=== PATIENT | male | born 1985 | race Caucasian/White ===

== ENCOUNTER 2022-12-08 12:10 | Emergency (ER) | payer BC, SELFPAY ==
[2022-12-08 12:32] VITALS: BP 180/105; PULSE 102; RESP 15; TEMP 37.4; O2SAT 98; BMI 30.5
--- NOTE | 2022-12-08 12:35 | ECG_ITS ---
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 Measurements Intervals [place] Rate: 98 P: 61 RI: 160 QRS: -18 QRSD: 114 T: 51 QT: 333 QTc: 426 Interpretive Statements SINUS RHYTHM POSSIBLE LEFT ATRIAL ENLARGEMENT [-0.1mV P-WAVE IN V1/V2] INCOMPLETE RIGHT BUNDLE BRANCH BLOCK [90+ ms QRS DURATION, TERMINAL R IN V1/V2, 40+ ms S IN I/aVL/V4/V5/V6] No previous ECG available for comparison Electronically Signed On 12-08-2022 16:18:26 CDT by Vignesh Duran M.D. [id number]
--- NOTE | 2022-12-08 12:58 | XRR_ITS ---
PROCEDURE INFORMATION: Exam: XR Chest Exam date and time: 12/08/2022 1:03 PM Age: 37 years old Clinical indication: Pain; Angina pectoris; Additional info: Chest pain TECHNIQUE: Imaging protocol: Radiologic exam of the chest. Views: 1 view. COMPARISON: No relevant prior studies available. FINDINGS: Lungs: Unremarkable. No consolidation. Pleural spaces: Unremarkable. No pleural effusion. No pneumothorax. Heart/Mediastinum: Unremarkable. No cardiomegaly. Bones/joints: Unremarkable. XR/XR chest 1V portable [id number] IMPRESSION: No acute findings.
[2022-12-08 13:28] LABS: Basophils # 0.1 10^3/uL (0.0-0.1); Basophils % 0.5 %; Eosinophils # 0.1 10^3/uL (0.0-0.8); Eosinophils % 0.8 %; Hematocrit 48.7 % (42.0-52.0); Hemoglobin 16.1 g/dL (11.7-16.6); Lymphocytes # 4.8 10^3/uL (0.8-4.8); Lymphocytes % 36.7 %; Mean Corpuscular HGB Conc 33.1 g/dL (30.0-36.0); Mean Corpuscular Hemoglobin 29.7 pg (28.0-34.0); Mean Corpuscular Volume 89.7 fl (80-94); Mean Platelet Volume 8.3 fL (7.4-10.4); Monocytes # 0.8 10^3/uL (0.2-0.9); Monocytes % 6.1 %; Neutrophils # 7.21 10^3/uL (1.8-7.7); Neutrophils % 55.2 %; Nucleated Red Blood Cells % 0 %; Platelet Count 304 10^3/cmm (130-400); Red Blood Count 5.43 10^6/uL (4.1-5.3); Red Cell Distribution Width 12.2 % (12.1-15.1); White Blood Count 13.1 10^3/uL (4.0-10.0)
[2022-12-08 13:47] LABS: Alanine Aminotransferase 25 U/L (0-41); Albumin Level 4.7 g/dL (3.5-5.2); Alkaline Phosphatase 56 U/L (40-130); Aspartate Amino Transferase 14 U/L (0-40); Blood Urea Nitrogen 18 mg/dL (6-20); Calcium 9.7 mg/dL (8.5-10.5); Carbon Dioxide 23 mmol/L (22-29); Chloride 101 mmol/L (98-107); Globulin 2.2 g/dL (1.3-4.6); Glomerular Filtration Rate 83.2 mL/min (90-130); Glucose 81 mg/dL (65-115); Osmolality Calculated 285 mOsm/kg (285-295); Sodium 137 mmol/L (136-145); Total Bilirubin 0.2 mg/dL (0.15-1.2); Total Protein 6.9 g/dL (6.6-8.7)
[2022-12-08 13:50] LABS: Troponin(5th) Baseline 6 ng/L (0-15)
[2022-12-08 14:31] VITALS: BP 190/113; PULSE 93; RESP 18; O2SAT 100
--- NOTE | 2022-12-08 14:31 | W.ED.CHESTPA ---
HPI - Chest Pain General: Chief Complaint: Chest Pain Stated Complaint: chest pain/ head feels funny Time Seen by Provider: 12/08/22 14:21 Source: patient Mode of arrival: ambulatory History of Present Illness: 37-year-old male presents emergency room complaining of generally not feeling well over the left chest discomfort. This been going on most of the day today. He has a history of hypertension he is not taking any medications he said a week ago he was stung by a wasp and was put on some prednisone because he had systemic urticaria after the bite that has all resolved he has not been taking lisinopril 10 mg daily that he was previously prescribed because he was taking Benadryl and he did not want to mix the 2. He has known hypertension for some time he has no known history of heart disease or diabetes. MD complaint: chest pain Onset (ago): day(s) (1) Pain location: left chest Pain radiation: none Severity: mild Quality: sharp Relieving factors: nothing Exacerbating factors: nothing Associated symptoms: Deny abdominal pain, diaphoresis, dyspnea, fever(s), leg edema, nausea, palpitations, sense of impending doom, syncope or vomiting Treatment prior to arrival: none Review of Systems Const: Denies: fever(s), chills, fatigue, malaise or diaphoresis ENMT: Denies: throat pain, ear or mastoid pain, nasal discharge or nasal congestion Card: Reports: chest pain; Denies: palpitations, irregular heart rhythm, edema or syncope Resp: Denies: dyspnea, productive cough, non-productive cough or wheezing GI: Denies: abdominal pain, nausea or vomiting : Denies: flank pain, dysuria, urinary frequency or urinary urgency Skin/Breast: Denies: rash or pruritus [facility] ED PFSH: Medical History (Updated 12/08/22 @ 15:50 by Andrea Escobar DO) Hypertension Social History Smoking and tobacco status: current every day smoker Physical Exam Const: GENERAL APPEARANCE: cooperative and comfortable ORIENTATION/CONSCIOUSNESS: Yes awake, Yes oriented to person, Yes oriented to place and Yes oriented to time HENMT: COMMON NORMALS: normocephalic, atraumatic and hearing grossly normal bilaterally HEAD & SCALP: normocephalic and atraumatic Resp: COMMON NORMALS: normal respiratory effort, No retractions, No use of accessory muscles and clear to auscultation bilaterally AUSCULTATION: clear to auscultation bilaterally Cardio: COMMON NORMALS: regular rate, regular rhythm and No murmurs present (Cardio) RATE: regular rate RHYTHM: regular rhythm GI: COMMON NORMALS: Soft to palpation and No hepatosplenomegaly present AUSCULTATION: Yes normoactive bowel sounds PALPATION: Yes Soft to palpation, No Tenderness to palpation present (GI), No Guarding due to palpation present (GI) and Yes No hepatosplenomegaly present Extremity: COMMON NORMALS: normal to inspection, capillary refill normal, no clubbing, cyanosis or edema, no calf tenderness and no pedal edema Neuro: SENSORIUM/ORIENTATION: Yes oriented to person, Yes oriented to place and Yes oriented to time OTHER: Cranial nerves II to XII grossly intact no focal neurologic deficits are noted Skin: COMMON NORMALS: no rashes or lesions noted GENERAL SKIN EXAM: no rashes or lesions noted Course Vital Signs: Vital signs: Vital Signs Temperature 99.3 F 12/08/22 12:32 Pulse Rate 79 12/08/22 15:56 Respiratory Rate 18 12/08/22 14:31 Blood Pressure 134/92 12/08/22 15:56 Pulse Oximetry 98 12/08/22 15:11 Oxygen Delivery Me thod Room Air 12/08/22 15:11 MDM - Chest Pain Medical Decision Making Cardiac enzymes and EKG unremarkable no sign of acute coronary syndrome blood pressure improved with medications given. We will increase his lisinopril to 20 mg daily add Toprol-XL 25 p.o. daily discussed in the importance of blood pressure control long-term. Case management will help him set up with a primary care physician. Medical Records I reviewed the patient's medical records. Lab Data I reviewed the patient's lab results. 12/08/22 13:17 12/08/22 13:17 Radiology Impressions Chest X-Ray 12/08/22 12:58 IMPRESSION: No acute findings. Laboratory Results WBC 13.1 10^3/uL (4.0-10.0) H 12/08/22 13:17 RBC 5.43 10^6/uL (4.1-5.3) H 12/08/22 13:17 Hgb 16.1 g/dL (11.7-16.6) 12/08/22 13:17 Hct 48.7 % (42.0-52.0) 12/08/22 13:17 MCV 89.7 fl (80-94) 12/08/22 13:17 MCH 29.7 pg (28.0-34.0) 12/08/22 13:17 MCHC 33.1 g/dL (30.0-36.0) 12/08/22 13:17 RDW 12.2 % (12.1-15.1) 12/08/22 13:17 Plt Count 304 10^3/cmm (130-400) 12/08/22 13:17 MPV 8.3 fL (7.4-10.4) 12/08/22 13:17 Neut % (Auto) 55.2 % 12/08/22 13:17 Lymph % (Auto) 36.7 % 12/08/22 13:17 [place] % (Auto) 6.1 % 12/08/22 13:17 Eos % (Auto) 0.8 % 12/08/22 13:17 Baso % (Auto) 0.5 % 12/08/22 13:17 Neut # (Auto) 7.21 10^3/uL (1.8-7.7) 12/08/22 13:17 Lymph # (Auto) 4.8 10^3/uL (0.8-4.8) 12/08/22 13:17 [place] # (Auto) 0.8 10^3/uL (0.2-0.9) 12/08/22 13:17 Eos # (Auto) 0.1 10^3/uL (0.0-0.8) 12/08/22 13:17 Baso # (Auto) 0.1 10^3/uL (0.0-0.1) 12/08/22 13:17 Nucleated RBC % (auto) 0 % 12/08/22 13:17 Nucleated RBCs # 0.0 /100WBC 12/08/22 13:17 Sodium 137 mmol/L (136-145) 12/08/22 13:17 Potassium 4.0 mmol/L (3.5-5.1) 12/08/22 13:17 Chloride 101 mmol/L (98-107) 12/08/22 13:17 Carbon Dioxide 23 mmol/L (22-29) 12/08/22 13:17 Anion Gap 17.0 (5-19) 12/08/22 13:17 BUN 18 mg/dL (6-20) 12/08/22 13:17 Creatinine 1.0 mg/dL (0.7-1.2) 12/08/22 13:17 GFR Calculation 83.2 mL/min (90-130) L 12/08/22 13:17 Glucose 81 mg/dL (65-115) 12/08/22 13:17 Calculated Osmolality 285 mOsm/kg (285-295) 12/08/22 13:17 Calcium 9.7 mg/dL (8.5-10.5) 12/08/22 13:17 Total Bilirubin 0.2 mg/dL (0.15-1.2) 12/08/22 13:17 AST 14 U/L (0-40) 12/08/22 13:17 ALT 25 U/L (0-41) 12/08/22 13:17 Alkaline Phosphatase 56 U/L (40-130) 12/08/22 13:17 Troponin T Baseline 6 ng/L (0-15) 12/08/22 13:17 Troponin T 120 Minute 6.00 ng/L (0-15) 12/08/22 14:55 Delta Troponin T 0 ABS# (0-10) 12/08/22 14:55 Total Protein 6.9 g/dL (6.6-8.7) 12/08/22 13:17 Albumin 4.7 g/dL (3.5-5.2) 12/08/22 13:17 Globulin 2.2 g/dL (1.3-4.6) 12/08/22 13:17 Discharge Plan Discharge Patient Disposition: Home Clinical Impression: Hypertension, Atypical chest pain Condition: Stable Prescriptions: New Toprol XL 25 mg tablet extended release 24 hr 25 mg PO DAILY Qty: 30 0RF lisinopril 20 mg tablet 20 mg PO DAILY Qty: 30 0RF Discontinued lisinopril 10 mg tablet 10 mg PO DAILY No Action prednisone 20 mg tablet 20 mg PO DAILY Rx Instructions: taper dose as directed Discharge Orders: Discharge ED (Routine); Ordered 12/08/22 Ordered By: Andrea Escobar Discharge Diet: Usual diet Discharge Activity: Increase activity as tolerated Patient Instructions: Chronic Hypertension (ED), Opioid Safety, Pain Management Activity Restrictions/Additional Instructions: Increase her lisinopril to 20 mg daily and add metoprolol XL 25 mg daily. Follow-up with your primary care doctor within the next week to reevaluate your blood pressure. Coding Level of Care Code ED De Icer Finisher for Simin Bangura
[2022-12-08] MEDS: enalaprilat 1.25 mg/mL Inj IVP (14:42)
[2022-12-08] MEDS: metoprolol succinate ER (24 HR) 25 mg Tablet PO (14:43)
[2022-12-08] MEDS: labetalol 5 mg/mL SDV 20mL 10 MG IVP (14:44)
[2022-12-08 14:47] VITALS: BP 190/113
--- NOTE | 2022-12-08 14:58 | ECG_ITS ---
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 Measurements Intervals [place] Rate: 82 P: 54 PA: 168 QRS: -7 QRSD: 116 T: 31 QT: 351 QTc: 412 Interpretive Statements SINUS RHYTHM POSSIBLE LEFT ATRIAL ENLARGEMENT [-0.1mV P-WAVE IN V1/V2] INCOMPLETE RIGHT BUNDLE BRANCH BLOCK [90+ ms QRS DURATION, TERMINAL R IN V1/V2, 40+ ms S IN I/aVL/V4/V5/V6] Compared to ECG 12/08/2022 12:40:29 No significant changes Electronically Signed On 12-08-2022 16:19:27 CDT by Vignesh Duran M.D. [id number]
[2022-12-08 15:11] VITALS: BP 154/100; O2SAT 98
[2022-12-08 15:44] VITALS: BP 134/92
[2022-12-08 15:53] LABS: Troponin 5 2HR Delta 0 ABS# (0-10)
[2022-12-08 15:56] VITALS: BP 134/92; PULSE 79
--- NOTE | 2022-12-09 09:38 | DCPLANNER ---
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 Patient stated that he would like to get established with a provider. postal service sectional center manager called [facility], gave clinic patients information. A follow up appointment was scheduled for Monday, January 02, 2023 at 9:[address] Rico. Patient is aware of appointment.
== END 2022-12-08 15:57 | disposition home or self-care (01) ==
PROVIDERS: Physician Assistant; Emergency Provider Family Medicine
DX: R07.89 Other chest pain (principal); I10 Essential (primary) hypertension; F17.200 Nicotine dependence, unspecified, uncomplicated
CPT/HCPCS: 36415; 71045; 80053; 84484; 85025; 93005; 96374; 96375; 99285; J3490

== ENCOUNTER 2022-12-27 14:29 | Inpatient (IN) | payer BC, SELFPAY ==
[2022-12-27] VITALS (13 sets, daily range): BP systolic 110–174; BP diastolic 64–105; PULSE 52–104; RESP 12–22; TEMP 36.6–36.8; O2SAT 93–100; BMI 29.0
--- NOTE | 2022-12-27 14:37 | ED_ITS ---
HPI - Chest Pain General: Chief Complaint: Chest Pain Stated Complaint: chest pain Time Seen by Provider: 12/27/22 14:30 Source: patient Mode of arrival: EMS History of Present Illness: 37-year-old male presents emergency room planing of chest pain that began about half hour after he taken some oral antibiotics. It is worse when he takes a deep breath describes as a burning sensation substernally radiating from the epigastric area up to the base of his neck. He has not had any nausea vomiting or diarrhea he does have some discomfort into his back states he has had some upper chest pain last night as well is not affected by deep inspiration. He does state it radiates on his right arm he was seen earlier this month for chest pain his cardiac rule out was negative. He was seen in this morning at a walk- in clinic and discharged with oral antibiotics. MD complaint: chest pain Onset (ago): hour(s) Timing of current episode: episodic Prior episodes: Yes Onset: other (Worse after taking oral antibiotic) Pain location: substernal Pain radiation: right arm Severity: mild Quality: burning Relieving factors: nothing Exacerbating factors: nothing Associated symptoms: Deny abdominal pain, dyspnea, fever(s), nausea, palpitations or vomiting Review of Systems Const: Denies: fever(s), chills, body aches, change in appetite, fatigue or malaise ENMT: Denies: throat pain, ear or mastoid pain, nasal discharge or nasal congestion Card: Reports: chest pain; Denies: palpitations, irregular heart rhythm, edema, dyspnea on exertion or orthopnea Resp: Denies: dyspnea, productive cough or non-productive cough GI: Denies: abdominal pain, nausea, vomiting, hematemesis, coffee ground emesis, diarrhea, constipation, bloating, hematochezia or melena : Denies: flank pain, dysuria, urinary frequency or urinary urgency Skin/Breast: Denies: rash or pruritus PFSH ED PFSH: Medical History Hypertension Social History Smoking and tobacco status: current every day smoker Physical Exam Const: GENERAL APPEARANCE: cooperative and comfortable ORIENTATION/CONSCIOUSNESS: Yes awake, Yes oriented to person, Yes oriented to place and Yes oriented to time HENMT: COMMON NORMALS: normocephalic, atraumatic and hearing grossly normal bilaterally HEAD & SCALP: normocephalic and atraumatic Resp: COMMON NORMALS: normal respiratory effort, No retractions, No use of accessory muscles and clear to auscultation bilaterally AUSCULTATION: clear to auscultation bilaterally Cardio: COMMON NORMALS: regular rate, regular rhythm and No murmurs present (Cardio) RATE: regular rate RHYTHM: regular rhythm GI: COMMON NORMALS: Soft to palpation and No hepatosplenomegaly present AUSCULTATION: Yes normoactive bowel sounds PALPATION: Yes Soft to palpation, No Tenderness to palpation present (GI), No Guarding due to palpation present (GI) and Yes No hepatosplenomegaly present Extremity: COMMON NORMALS: normal to inspection, capillary refill normal, no clubbing, cyanosis or edema, no calf tenderness and no pedal edema Neuro: SENSORIUM/ORIENTATION: Yes oriented to person, Yes oriented to place and Yes oriented to time Skin: COMMON NORMALS: no rashes or lesions noted GENERAL SKIN EXAM: no rashes or lesions noted Course Vital Signs: Vital signs: Vital Signs Temperature 98.3 F 12/27/22 15:10 Pulse Rate 76 12/27/22 15:58 Respiratory Rate 20 H 12/27/22 15:58 Blood Pressure 152/105 12/27/22 15:58 Pulse Oximetry 98 12/27/22 15:58 MDM - Chest Pain Medical Decision Making Initial EKG showed vague abnormality nonspecific in 2 and aVF repeated was res olved and appeared similar to the December 08 EKG does not meet STEMI criteria reviewed with Dr. Orellana he concurs. His second troponin however was a positive delta of 81. Patient is still having some mild chest discomfort although it is improved. Started on heparin drip as well as nitro we will admit with Dr. Wu consult for Dr. Orellana. Dr. Orellana is planning to come see the patient in the emergency room he has been given aspirin loaded with Plavix as well as a nitro and heparin. Medical Records I reviewed the patient's medical records. Lab Data I reviewed the patient's lab results. 12/27/22 14:48 12/27/22 14:48 Radiology Impressions Chest X-Ray 12/27/22 14:37 IMPRESSION: No acute findings. Laboratory Results WBC 8.7 10^3/uL (4.0-10.0) 12/27/22 14:48 RBC 4.82 10^6/uL (4.1-5.3) 12/27/22 14:48 Hgb 14.9 g/dL (11.7-16.6) 12/27/22 14:48 Hct 42.1 % (42.0-52.0) 12/27/22 14:48 MCV 87.3 fl (80-94) 12/27/22 14:48 MCH 30.9 pg (28.0-34.0) 12/27/22 14:48 MCHC 35.4 g/dL (30.0-36.0) 12/27/22 14:48 RDW 11.9 % (12.1-15.1) L 12/27/22 14:48 Plt Count 253 10^3/cmm (130-400) 12/27/22 14:48 MPV 8.3 fL (7.4-10.4) 12/27/22 14:48 Neut % (Auto) 61.6 % 12/27/22 14:48 Lymph % (Auto) 30.4 % 12/27/22 14:48 [place] % (Auto) 5.2 % 12/27/22 14:48 Eos % (Auto) 1.8 % 12/27/22 14:48 Baso % (Auto) 0.5 % 12/27/22 14:48 Neut # (Auto) 5.35 10^3/uL (1.8-7.7) 12/27/22 14:48 Lymph # (Auto) 2.6 10^3/uL (0.8-4.8) 12/27/22 14:48 [place] # (Auto) 0.5 10^3/uL (0.2-0.9) 12/27/22 14:48 Eos # (Auto) 0.2 10^3/uL (0.0-0.8) 12/27/22 14:48 Baso # (Auto) 0.0 10^3/uL (0.0-0.1) 12/27/22 14:48 Nucleated RBC % (auto) 0 % 12/27/22 14:48 Nucleated RBCs # 0.0 /100WBC 12/27/22 14:48 Sodium 136 mmol/L (136-145) 12/27/22 14:48 Potassium 3.7 mmol/L (3.5-5.1) 12/27/22 14:48 Chloride 103 mmol/L (98-107) 12/27/22 14:48 Carbon Dioxide 21 mmol/L (22-29) L 12/27/22 14:48 Anion Gap 15.7 (5-19) 12/27/22 14:48 BUN 12 mg/dL (6-20) 12/27/22 14:48 Creatinine 0.9 mg/dL (0.7-1.2) 12/27/22 14:48 GFR Calculation 93.9 mL/min (90-130) 12/27/22 14:48 Glucose 133 mg/dL (65-115) H 12/27/22 14:48 Calculated Osmolality 284 mOsm/kg (285-295) L 12/27/22 14:48 Calcium 9.5 mg/dL (8.5-10.5) 12/27/22 14:48 Total Bilirubin 0.2 mg/dL (0.15-1.2) 12/27/22 14:48 AST 14 U/L (0-40) 12/27/22 14:48 ALT 20 U/L (0-41) 12/27/22 14:48 Alkaline Phosphatase 52 U/L (40-130) 12/27/22 14:48 Troponin T Baseline 10 ng/L (0-15) 12/27/22 14:48 Troponin T 120 Minute 90.83 ng/L (0-15) H 12/27/22 16:32 Delta Troponin T 80.83 ABS# (0-10) H* 12/27/22 16:32 Total Protein 6.3 g/dL (6.6-8.7) L 12/27/22 14:48 Albumin 4.4 g/dL (3.5-5.2) 12/27/22 14:48 Globulin 1.9 g/dL (1.3-4.6) 12/27/22 14:48 Discharge Plan Discharge Patient Disposition: Admitted As Inpatient Clinical Impression: Acute non-ST elevation myocardial infarction (NSTEMI), Hypertension Condition: Stable Coding Level of Care Code ED Family Preservation Caseworker for Simin Bangura
--- NOTE | 2022-12-27 14:37 | XRR_ITS ---
PROCEDURE INFORMATION: Exam: XR Chest Exam date and time: 12/27/2022 2:46 PM Age: 37 years old Clinical indication: Cough and dyspnea; Additional info: Dyspnea/cough TECHNIQUE: Imaging protocol: Radiologic exam of the chest. Views: 1 view. COMPARISON: CR XR chest 1V portable [id number] 12/08/2022 1:03 PM FINDINGS: Lungs: Unremarkable. No consolidation. Pleural spaces: Unremarkable. No pleural effusion. No pneumothorax. Heart/Mediastinum: Unremarkable. No cardiomegaly. Bones/joints: Unremarkable. XR/XR chest 1V portable [id number] IMPRESSION: No acute findings.
--- NOTE | 2022-12-27 14:37 | ECG_ITS ---
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 Measurements Intervals [place] Rate: 62 P: 15 CT: 168 QRS: 62 QRSD: 105 T: 49 QT: 384 QTc: 391 Interpretive Statements SINUS RHYTHM POSSIBLE INFERIOR MYOCARDIAL INFARCTION , PROBABLY OLD [30 ms Q WAVE IN II/aVF] Compared to ECG 12/27/2022 14:41:21 Myocardial infarct finding now present Incomplete right bundle-branch block no longer present ST (T wave) deviation no longer present Electronically Signed On 12-29-2022 8:33:49 CDT by Conrado Riley M.D. [id number]
--- NOTE | 2022-12-27 14:41 | ECG_ITS ---
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 Measurements Intervals [place] Rate: 63 P: 42 ID: [id number] QRS: -4 QRSD: 107 T: -4 QT: 384 QTc: 394 Interpretive Statements SINUS RHYTHM INCOMPLETE RIGHT BUNDLE BRANCH BLOCK [90+ ms QRS DURATION, TERMINAL R IN V1/V2, 40+ ms S IN I/aVL/V4/V5/V6] MINIMAL VOLTAGE CRITERIA FOR LVH, CONSIDER NORMAL VARIANT [MEETS CRITERIA IN ONE OF: R(aVL), S(V1), R(V5), R(V5/V6)+S(V1)] MODERATE ST DEPRESSION [0.05+ mV ST DEPRESSION] Compared to ECG 12/08/2022 14:42:36 ST (T wave) deviation now present Electronically Signed On 12-29-2022 8:37:53 CDT by Conrado Riley M.D. [email or web address]/[id number]
[2022-12-27 15:01] LABS: Basophils % 0.5 %; Eosinophils # 0.2 10^3/uL (0.0-0.8); Eosinophils % 1.8 %; Hematocrit 42.1 % (42.0-52.0); Hemoglobin 14.9 g/dL (11.7-16.6); Lymphocytes # 2.6 10^3/uL (0.8-4.8); Lymphocytes % 30.4 %; Mean Corpuscular HGB Conc 35.4 g/dL (30.0-36.0); Mean Corpuscular Hemoglobin 30.9 pg (28.0-34.0); Mean Corpuscular Volume 87.3 fl (80-94); Mean Platelet Volume 8.3 fL (7.4-10.4); Monocytes # 0.5 10^3/uL (0.2-0.9); Monocytes % 5.2 %; Neutrophils # 5.35 10^3/uL (1.8-7.7); Neutrophils % 61.6 %; Nucleated Red Blood Cells % 0 %; Platelet Count 253 10^3/cmm (130-400); Red Blood Count 4.82 10^6/uL (4.1-5.3); Red Cell Distribution Width 11.9 % (12.1-15.1); White Blood Count 8.7 10^3/uL (4.0-10.0)
[2022-12-27 15:21] LABS: Alanine Aminotransferase 20 U/L (0-41); Albumin Level 4.4 g/dL (3.5-5.2); Alkaline Phosphatase 52 U/L (40-130); Anion Gap 15.7 (5-19); Aspartate Amino Transferase 14 U/L (0-40); Blood Urea Nitrogen 12 mg/dL (6-20); Calcium 9.5 mg/dL (8.5-10.5); Carbon Dioxide 21 mmol/L (22-29); Chloride 103 mmol/L (98-107); Globulin 1.9 g/dL (1.3-4.6); Glomerular Filtration Rate 93.9 mL/min (90-130); Glucose 133 mg/dL (65-115); Osmolality Calculated 284 mOsm/kg (285-295); Potassium 3.7 mmol/L (3.5-5.1); Sodium 136 mmol/L (136-145); Total Bilirubin 0.2 mg/dL (0.15-1.2); Total Protein 6.3 g/dL (6.6-8.7)
[2022-12-27 15:22] LABS: Troponin(5th) Baseline 10 ng/L (0-15)
[2022-12-27] MEDS: aluminum-mag hydrox-simethicon 30 ML, sucralfate oral liq 1 GM PO (15:57)
[2022-12-27 17:20] LABS: Troponin 5 2HR 90.83 ng/L (0-15)
[2022-12-27 17:27] LABS: Troponin 5 2HR Delta 80.83 ABS# (0-10)
[2022-12-27] MEDS: heparin drip 25,000 UNIT/500 ML PREMIX 24.26 UNIT IV (17:52)
[2022-12-27] MEDS: heparin 5,000 unit/mL INJ 1 mL IV (17:53)
[2022-12-27] MEDS: aspirin 81 mg Chew Tablet 324 MG PO (17:55)
[2022-12-27] MEDS: nitroglycerin drip 50 MG/250 ML PREMIX IV (17:57)
[2022-12-27] MEDS: clopidogrel 300 mg Tablet 600 MG PO (17:59)
--- NOTE | 2022-12-27 18:31 | P.HP_ITS ---
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, he tells me that since he has been diagnosed with hypertension, he has been cutting down on caffeine, he used to be a smoker, he is cutting down, he tells me that this morning at 2 AM he woke up with anterior chest discomfort and was like a burning sensation with pain with taking a deep breath in, pain in the back of his throat, feeling a lump in back, he thought he had upper respiratory tract infection and got some antibiotics and steroids, but in the afternoon he had another episode of severe chest discomfort like something burning in his chest and his throat, feeling as if there is a lump in the back of his throat, so he came to the ER for evaluation, does have a family history of CAD in both sides Review of Systems Const: Denies: fever(s) or chills Eyes: Denies: change in vision ENMT: Denies: throat pain Card: Reports: chest pain Resp: Denies: dyspnea or non-productive cough GI: Denies: abdominal pain or nausea : Denies: flank pain or difficulty urinating Musc: Reports: back pain; Denies: neck pain Skin/Breast: Denies: rash Neuro: Denies: headache(s) Psych: Denies: anxiety Endo: Denies: polyuria Medications/Allergies Home Medications Medication Instructions Recorded Confirmed Last Taken Type lisinopril 20 mg tablet 20 mg PO DAILY #30 tabs 12/08/22 12/27/22 12/27/22 Rx metoprolol succinate 25 mg 25 mg PO DAILY #30 tabs 12/08/22 12/27/22 12/27/22 Rx tablet,extended release 24 hr (Toprol XL) Allergies Allergy/AdvReac Type Severity Reaction Status Date / Time No Known Allergies Allergy Verified 12/27/22 10:49 PFSH Acute PFSH: Medical History (Updated 12/27/22 @ 18:36 by Jose Wu MD) Hypertension Surgical History (Updated 12/27/22 @ 18:34 by Jose Wu MD) No pertinent past surgical history Family History (Updated 12/27/22 @ 18:35 by Jose Wu MD) Father CAD (coronary artery disease) Mother CAD (coronary artery disease) Grandmother CAD (coronary artery disease) Social History (Updated 12/27/22 @ 18:35 by Jose Wu MD) Smoking and tobacco status: current every day smoker Alcohol intake: never Substance/Drug Use: never Vitals/I&O/Wt Last Vital Signs Temp 98.3 F 12/27/22 15:10 Pulse 76 12/27/22 15:58 Resp 20 H 12/27/22 15:58 BP 152/105 12/27/22 15:58 Pulse Ox 98 12/27/22 15:58 Weight last 48 hrs Weight 86.636 kg Physical Exam Const: COMMON NORMALS: no acute distress and patient oriented x3 HENMT: COMMON NORMALS: normocephalic HEAD & SCALP: normocephalic Eye: COMMON NORMALS: Equal, round and reactive pupils present and EOMs intact bilaterally Neck/C-Spine: COMMON NORMALS: no JVD Lymph: LYMPHATIC: no lymphadenopathy noted Chest: COMMONS NORMALS: normal inspection of the chest Resp: COMMON NORMALS: normal respiratory effort, No retractions, No use of accessory muscles and clear to auscultation bilaterally AUSCULTATION: clear to auscultation bilaterally Cardio: COMMON NORMALS: no JVD, regular rate, regular rhythm, S1 normal heart sound present and S2 normal heart sound present RATE: regular rate RHYTHM: regular rhythm HEART SOUNDS: S1 normal heart sound present and S2 normal heart sound present GI: COMMON NORMALS: Normal to inspection, nondistended, normoactive bowel sounds present, Soft to palpation, non-tender, no masses and no bruits PALPATION: Yes Soft to palpation : COMMON NORMALS: Yes no CVA tenderness Extremity: COMMON NORMALS: no clubbing, cyanosis or edema, no calf tenderness and no pedal edema Neuro: COMMON NORMALS: patient oriented x3, CN's II-XII intact bilaterally, moves all extremities, no focal motor deficits and no sensory deficits noted Psych: COMMON NORMALS: mental status grossly normal Data 12/27/22 14:48 12/27/22 14:48 A&P Assessment and plan (1) Acute non-ST elevation myocardial infarction (NSTEMI): (2) Chest pain: (3) Hypertension: Plan Chest pain and NSTEMI Plan -Admit to CSU -Currently on heparin drip -Currently on nitroglycerin drip -Serial EKGs, serial troponins, telemetry monitoring -Loaded with Plavix and aspirin -Aspirin, statin, beta-maria eugenia -morphine for pain as needed -Cardiac echo -TSH, A1c, lipid panel, ESR -Cardiology consulted, npo -Full code -Heparin for DVT prophylaxis Attestations Medical Necessity Statement*: Patient requires hospitalization, inpatient, greater than 2 midnights, for chest pain and NSTEMI Diagnoses Acute non-ST elevation myocardial infarction (NSTEMI) I21.4 Chest pain R07.9 Hypertension I10
--- NOTE | 2022-12-27 19:01 | XACV_ITS ---
Exam Room: [facility] Ht: 173 cm Wt: 87 kg BSA: 2.06 m2 Gender: Male : 1985 Exam Priority: Routine Procedure(s): Procedure Description: Diagnostic procedure Procedure Description: Left Heart Catheterization Procedure Description: Left ventriculography Procedure Description: Miscellaneous Procedure Description: ACT Procedure Description: Coronary Angiography Darrick JOHNSON; Diagnostic Cath Status: Emergency PCI Status: Emergency Conclusions 1. #1 Left main distal 80% stenosed #2 LAD is moderate-sized with luminal irregularities, diagonal 1 is a moderate-sized in caliber vessel with luminal irregularity #3 Left circumflex is a moderate-sized in caliber nondominant vessel with luminal irregularity #4 Ramus intermedius has proximal 90% stenosis it is small to moderate-sized caliber vessel #5 RCA is dominant moderate-sized in caliber vessel with proximal and mid 80% stenosis. Left ventricular ejection fraction appeared to be moderately reduced at 40% with anterior apical and inferoapical hypokinesis Left ventricular end-diastolic pressure normal 8 mmHg. Recommendations * Usual post cath care. * Refer for CABG. Diagnostic RX Recommendation: CABG LV EDP: 8 mmHg Ventriculography Ejection Fraction: 40.0 % Left Ventriculography Findings: * Moderately depressed LVEF 40%. Pressures Phase:Rest AO : 98 / 76 ( 88 ) @ 3:08:56 PM 89 / 67 ( 79 ) @ 3:08:56 PM 98 / 66 ( 83 ) @ 3:08:56 PM 98 / 56 ( 75 ) @ 3:08:56 PM 95 / 52 ( 71 ) @ 3:08:56 PM 104 / 56 ( 77 ) @ 3:08:56 PM LV : 118 / -17 / 5 @ 3:08:56 PM 114 / -11 / 5 @ 3:08:56 PM 119 / -13 / 8 @ 3:08:56 PM Valves Phase:DefaultPhase AV : 14.0 @ 8:08:56 PM 14.0 @ 8:08:56 PM AV Mean Gradient: 11.0 @ 8:08:56 PM 11.0 @ 8:08:56 PM Clinical Evaluation EBL: 5mL-10mL Procedural Details Admit Source: Emergency department. Pre-Procedure Time Out. Identified patient by full name and date of as verbalized by the patient/guarantor. Does the consent match the physician's order: N/A Emergent. Accurate & Complete Informed Consent: N/A Emergent. Inpatient/Outpatient History & Physical on Chart: N/A Emergent. If H&P is completed, is and addenduem needed: N/A Emergent; If yes, is the addendum complete: N/A Emergent. Visualize and Verify Site with Patient/Guarantor: N/A. Relevant Radiology Images available: N/A Emergent. Pre-op teaching completed and patient verbalized understanding. The risks, benefits, and alternatives of sedation and/or procedure were discussed by physician. The patient agrees to continue. Procedure started. 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 Chest Pain Symptom Assessment: Typical Angina Symptoms. Correct patient, site and procedure confirmed by cath team. Current diagnosis: NSTEMI. PERRLA. Strong, equal hand sound system installer bilaterally. Lungs clear x 5 lobes. IV Site on Arrival: 20 gauge in the right anticubital. IV Site on Arrival: 20 gauge in the left anticubital. IV Fluids: 0.9% NaCl at KVO. 0 mL infused prior to earth science laboratory technician. Pre Procedural Pulses: bilateral dorsalis pedis was 1+. Pre Procedural Pulses: bilateral posterior tibial was 1+. Pre Procedural Pulses: bilateral radial was 3+. Oxygen started at 2liters/min via nasal canula. right groin was prepped with chloroprep then draped in the usual sterile fashion. right radial was prepped with chloroprep then draped in the usual sterile fashion. Physician notified. Baseline sample Acquired. HR: 80 BPM. Physician arrived. Physician scrubbed in. Immediate Pre-Procedure Time Out. Correct Patient: Yes; Correct Procedure: Yes; Correct Site: Yes; Correct Patient Position: Yes; Correct Supplies: Yes; Dried Flammable Prep: Yes; Blood Products Available: N/A;. Lidocaine 1% infiltrated to the right radial. Arterial access obtained. A 5 polish TIG catheter in over wire. ACT drawn. Results 174 seconds. Therapeutic limits - pre-heparin administration 90-150 seconds and monitoring heparin during a vascular procedure >250 seconds. Multiple views taken of right coronary artery. Catheter redirected to the LCA. Catheter out. A 5 polish Tip catheter in over wire. Catheter out. A 5 polish JL4 catheter in over wire. Catheter out. 6 polish CLS 3 guide catheter was inserted over the wire. Multiple views taken of left coronary artery. Catheter out. A 5 polish Angled Pig catheter in over wire. EDP Sample taken: LV 118/-18,5; HR: 74 BPM; SpO2: 100%. LV gram performed in [place] @ 10 mL/second for a total of 30 mL. EDP Sample taken: LV 114/-12,5; HR: 73 BPM; SpO2: 100%. Pullback taken: LV 119/-14,8; AO 104/56(77); Mean: 11mmHg, Peak to Peak: 14mmHg, SEP: 20sec/min; HR: 69 BPM; SpO2: 100%. Catheter out. Wire out. Post Procedure: Pulses reassessed and unchanged. PERRLA. Strong, equal hand sound system installer bilaterally. No VTE prophylaxis required. Medication's Wasted: Nitro = 49.8 mg. Medication's Wasted: Heparin = 1000 units. Total IV fluids: 35 mL. A TR Band was successful obtaining hemostatsis at the Right Radial artery insertion site. Post-op diagnosis: mulit vessel cad including Left Main, needing bypas surgery. Complications: none. Estimated blood loss: 5mL-10mL. Responsiveness - Normal response to verbal stimuli; alert and oriented, PERRLA. Airway - Unaffected, no intervention required; spontaneous ventilation. Circulation: W/N/L, pulses unchanged. Nausea/Vomiting: No. Procedure completed. Patient transferred by wheelchair to 1st floor. Vital chart was stopped. Access Site Site: Right Radial artery Sheath Size: 6 Fr Hemostasis Method: TR Band Hemostasis Success: Successful Complication Findings: none. Procedure Medications Start: 7:30 PM Stop: 7:30 PM Medication: Versed Amount: 1 mg Route: I.V. Start: 7:30 PM Stop: 7:30 PM Medication: Fentanyl Amount: 50 mcg Route: I.V. Start: 7:30 PM Stop: 7:30 PM Medication: Versed Amount: 1 mg Route: I.V. Start: 7:32 PM Stop: 7:32 PM Medication: Versed Amount: 1 mg Route: I.V. Start: 7:32 PM Stop: 7:32 PM Medication: Nitrogylcerin Amount: 200 mcg Route: I.A. Start: 7:32 PM Stop: 7:32 PM Medication: Fentanyl Amount: 25 mcg Route: I.V. Start: 7:35 PM Stop: 7:35 PM Medication: Versed Amount: 1 mg Route: I.V. Start: 7:40 PM Stop: 7:40 PM Medication: Heparin Amount: 5000 units Route: I.V. Start: 7:40 PM Stop: 7:40 PM Medication: Fentanyl Amount: 25 mcg Route: I.V. Start: 7:43 PM Stop: 7:43 PM Medication: Versed Amount: 1 mg Route: I.V. Start: 7:51 PM Stop: 7:51 PM Medication: Versed Amount: 1 mg Route: I.V. I, the attending physician, have reviewed and verified all procedure medications. Yes, all medications given per verbal order History/Risk Factors Hypertension: No Dyslipidemia: No Peripheral Arterial Disease (PAD): No Myocardial Infarction (SD): No Obesity: No Tobacco Use: Current/Recent(w/in 1 year) Prior Interventions Valve Surgery: No Report Signatures Amended by Vincenzo Hollingsworth MD on 12/27/2022 08:54 PM Finalized by Vincenzo Hollingsworth MD on 12/27/2022 08:40 PM
--- NOTE | 2022-12-27 19:13 | W.PM.OPSFHP ---
Same Day Surgery H&P Indication for Procedure/HPI DATE OF PROCEDURE: December 27, 2022 CHIEF COMPLAINT/INDICATIONFOR SURGICAL PROCEDURE: Chest pain/non-ST elevation MT PREOP DIAGNOSIS: Non-ST relation normal PLANNED PROCEDURE: Left heart cath/PCI if indicated 37-year-old male with past medical history significant for continuous tobacco abuse hypertension presented with off-and-on chest pain going on for the last few days last night chest pain woke him up from the sleep this morning he has epigastric fullness and pain therefore decided to come to ER thinking it is GI. First EKG performed around [address] elevation in the inferior leads with septal leads mild depression. He was ruled in with second delta troponin of 90 with normalization of second EKG. I was informed at 5:17 PM. I came to the ER and saw the patient. It appears to me that patient has acute coronary syndrome with dynamic EKG changes and recurrent chest pain I will proceed with left heart cath/PCI if indicated for ROS Chest pain shortness of breath upon exertion Medications/Allergies* No known medicine and Allergies/Adverse Reactions Allergy/AdvReac Type Severity Reaction Status Date / Time No Known Allergies Allergy Verified 12/27/22 10:49 Additional Home Medication Information: Metoprolol Lisinopril Current Medications: Generic Name Dose Route Start Last Admin Trade Name Freq PRN Reason Stop Dose Admin Heparin Sodium (Porcine) 0 unit 12/27/22 17:30 12/27/22 17:53 Heparin 5,000 Unit/Ml Inj 1 Ml IV 4,300 unit PRN PRN Administration Heparin weight-base protocol Protocol Heparin Sodium/Sodium Chloride 25,000 unit in 500 mls @ 0 mls/hr 12/27/22 17:30 12/27/22 17:52 Heparin Drip IV 14 unit/kg/hr .Q0M BELLA 24.26 mls/hr Administration Protocol Per Protocol Nitroglycerin/Dextrose 50 mg in 250 mls @ 0 mls/hr 12/27/22 17:45 12/27/22 17:57 Nitroglycerin Drip IV 5 mcg/min .Q0M BELLA 1.5 mls/hr Administration Protocol Per Protocol Pertinent History/Comorbid Conditions* Medical History (Updated 12/27/22 @ 18:36 by Jose Wu MD) Hypertension Surgical History (Updated 12/27/22 @ 18:34 by Jose Wu MD) No pertinent past surgical history Family History (Updated 12/27/22 @ 18:35 by Jose Wu MD) CAD (coronary artery disease) Father Mother Grandmother Social History Smoking and tobacco status: current every day smoker Alcohol intake: never Substance/Drug Use: never Pertinent Exam Findings alert, oriented x 3, clear to auscultation bilaterally, regular rate & rhythm, operative site marked and procedure specific exam findings ASA of 2 Mallampati 2 Recommendations Surgery/Procedure today (Left heart cath/PCI) Coding Level of Care Code Acute Code for Chg Fwd Diagnoses
[2022-12-27 19:33] LABS: NT Pro B Type Natriuretic Pept 72 pg/mL (0-125)
[2022-12-27 20:27] LABS: Erythrocyte Sedimentation Rate 9 mm/hr (0-10)
[2022-12-27 20:37] LABS: Triglycerides 252 mg/dL (0-150)
--- NOTE | 2022-12-27 20:37 | ECG_ITS ---
[facility] Test Date: 2022-12-27 Pat Name: Gerardo Hunter Department: Room: Gender: Male It Operations Specialist: : 1985 Requested By: Andrea Pepe Order Number: [id number] Jamar MD: Conrado Riley M.D. Measurements Intervals [place] Rate: 61 P: 53 IN: 180 QRS: -4 QRSD: 103 T: 79 QT: 391 QTc: 397 Interpretive Statements SINUS RHYTHM WITH OCCASIONAL VENTRICULAR PREMATURE COMPLEXES INCOMPLETE RIGHT BUNDLE BRANCH BLOCK [90+ ms QRS DURATION, TERMINAL R IN V1/V2, 40+ ms S IN I/aVL/V4/V5/V6] NONSPECIFIC T-WAVE ABNORMALITY Compared to ECG 12/27/2022 15:20:20 Ventricular premature complex(es) now present Incomplete right bundle-branch block now present T-wave abnormality now present Myocardial infarct finding no longer present Electronically Signed On 12-29-2022 8:37:19 CDT by Conrado Riley M.D. [id number]
[2022-12-27 20:39] LABS: HDL Cholesterol 3 mg/dL (60-100)
[2022-12-27] MEDS: atorvastatin 40 mg Tablet 80 MG PO (20:57)
[2022-12-27] MEDS: pantoprazole 40 mg SDV IVP (20:58)
[2022-12-27 21:02] LABS: Chol HDL Ratio 96.67 mg/dL (1.0-5.00); Cholesterol 290 mg/dL (0-200); LDL Cholesterol Calculated 237 mg/dL (50-129); Thyroid Stimulating Hormone 1.57 uIU/mL (0.27-4.20)
[2022-12-27 21:25] LABS: Troponin 5 6HR 2030 ng/L (0-15); Troponin 5 6HR Delta 2020 ng/L (0-12)
[2022-12-27 22:08] LABS: Estmated Average Glucose 108; Hemoglobin A1C 5.4 % (4.0-6.0)
[2022-12-28] VITALS (9 sets, daily range): BP systolic 104–130; BP diastolic 65–83; PULSE 52–78; RESP 15–22; TEMP 36.6–37.1; O2SAT 94–99
[2022-12-28 06:20] LABS: Basophils # 0.1 10^3/uL (0.0-0.1); Basophils % 0.6 %; Eosinophils # 0.2 10^3/uL (0.0-0.8); Eosinophils % 2.5 %; Hematocrit 42.3 % (42.0-52.0); Hemoglobin 14.2 g/dL (11.7-16.6); Lymphocytes # 3.5 10^3/uL (0.8-4.8); Lymphocytes % 40.7 %; Mean Corpuscular HGB Conc 33.6 g/dL (30.0-36.0); Mean Corpuscular Hemoglobin 30.2 pg (28.0-34.0); Mean Platelet Volume 8.6 fL (7.4-10.4); Monocytes # 0.5 10^3/uL (0.2-0.9); Monocytes % 5.4 %; Neutrophils # 4.28 10^3/uL (1.8-7.7); Neutrophils % 50.6 %; Nucleated Red Blood Cells % 0 %; Platelet Count 213 10^3/cmm (130-400); Red Cell Distribution Width 12.2 % (12.1-15.1); White Blood Count 8.5 10^3/uL (4.0-10.0)
[2022-12-28 06:27] LABS: Partial Thromboplastin Time 62.7 SECONDS (23.9-36.7)
[2022-12-28 06:53] LABS: Alanine Aminotransferase 42 U/L (0-41); Albumin Level 4.1 g/dL (3.5-5.2); Alkaline Phosphatase 51 U/L (40-130); Anion Gap 13.9 (5-19); Aspartate Amino Transferase 153 U/L (0-40); Blood Urea Nitrogen 12 mg/dL (6-20); Carbon Dioxide 22 mmol/L (22-29); Chloride 107 mmol/L (98-107); Globulin 1.9 g/dL (1.3-4.6); Glomerular Filtration Rate 107.6 mL/min (90-130); Glucose 109 mg/dL (65-115); Magnesium 2.1 mg/dL (1.7-2.3); Osmolality Calculated 288 mOsm/kg (285-295); Phosphorus 2.8 mg/dL (2.5-4.5); Potassium 3.9 mmol/L (3.5-5.1); Sodium 139 mmol/L (136-145); Total Bilirubin 0.2 mg/dL (0.15-1.2)
[2022-12-28] MEDS: metoprolol succinate ER (24 HR) 25 mg Tablet 12.5 MG PO (08:50)
[2022-12-28] MEDS: aspirin 81 mg EC Tablet PO (08:50)
[2022-12-28] MEDS: lisinopril 20 mg Tablet PO (08:50)
[2022-12-28 12:13] LABS: Partial Thromboplastin Time 59.8 SECONDS (23.9-36.7)
--- NOTE | 2022-12-28 15:02 | PM.PN ---
Subjective Subjective: No overnight event. Status post left heart cath noted to have distal left main significant stenosis along with high-grade ramus intermedius and proximal to mid RCA lesions. CABG was recommended. Troponin bumped up to 1999, no chest pain remained stable hemodynamically. Vitals/I&O/Wt Last Vital Signs Temp 98.3 F 12/28/22 12:00 Pulse 78 12/28/22 12:00 Resp 15 12/28/22 12:00 BP 130/83 12/28/22 12:00 Pulse Ox 99 12/28/22 12:00 O2 Del Method Room Air 12/28/22 12:00 12/28/22 12/28/22 12/28/22 06:59 14:59 22:59 Intake Total 200 / 731.755 840 / 840 Output Total 350 / 350 290 / 290 Balance -150 / 381.755 550 / 550 Weight last 48 hrs Weight 191 lb Physical Exam Narrative: Alert awake oriented x3 Heart regular sinus Lungs decreased breath sound but clear to auscultate FRAME OPENER grossly nonfocal Data 12/28/22 06:00 12/28/22 06:00 A&P Assessment and plan (1) Acute non-ST elevation myocardial infarction (NSTEMI): Status post left heart cath last night revealing 70% distal left main, 99% proximal ramus intermedius and 80% proximal and mid RCA, coronary artery bypass surgery was recommended given multivessel coronary disease with moderately depressed left ventricular ejection fraction of 45-50%. [facility] CT surgery Dr. Alonso Rojas was called and discussed regarding patient transfer. [facility] bed request was initiated. Awaiting bed so far patient appeared to be stable continue aspirin statin beta-maria eugenia and TRACIE inhibitor. Echocardiogram showed ejection fraction mildly reduced 50%. No aortic or mitral valve insufficiency. Continue heparin drip and nitroglycerin drip. Plavix was discontinued yesterday. (2) Hypertension: Well-controlled continue lisinopril beta-maria eugenia (3) Hyperlipidemia LDL goal <70: Continue high intensity statin patient has high LDL more than 200 (4) LV dysfunction: Mild to moderately depressed left ventricular ejection fraction 40% by LV gram and 50% by echo this morning. TRACIE inhibitor beta-maria eugenia on board. Attestations Medical Necessity Statement*: Patient require continuation hospitalization for above defined care. Patient is awaiting transfer to [facility] for possible CABG. Coding Level of Care Code Acute Code for Chg Fwd Diagnoses Acute non-ST elevation myocardial infarction (NSTEMI) I21.4 Hypertension I10 Hyperlipidemia LDL goal <70 E78.5 LV dysfunction I51.9
--- NOTE | 2022-12-28 17:23 | P.PN_ITS ---
Subjective Subjective: Patient was seen this morning, denies any chest pain, he is awaiting a bed at [facility], for multivessel CAD, consideration of CABG, denies any shortness of breath, no abdominal pain, he tells me that he has been changing his lifestyle for the last month, Vitals/I&O/Wt Last Vital Signs Temp 98.7 F 12/28/22 15:48 Pulse 72 12/28/22 15:48 Resp 16 12/28/22 15:48 BP 120/65 12/28/22 15:48 Pulse Ox 94 12/28/22 15:48 O2 Del Method Room Air 12/28/22 15:48 12/28/22 12/28/22 12/28/22 06:59 14:59 22:59 Intake Total 200 / 731.755 840 / 840 Output Total 350 / 350 290 / 290 Balance -150 / 381.755 550 / 550 Weight last 48 hrs Weight 86.636 kg Physical Exam Const: COMMON NORMALS: no acute distress and patient oriented x3 Resp: COMMON NORMALS: normal respiratory effort, No retractions, No use of accessory muscles and clear to auscultation bilaterally AUSCULTATION: clear to auscultation bilaterally Cardio: COMMON NORMALS: regular rate, regular rhythm, S1 normal heart sound present and S2 normal heart sound present RATE: regular rate RHYTHM: regular rhythm HEART SOUNDS: S1 normal heart sound present and S2 normal heart sound present GI: COMMON NORMALS: Normal to inspection, nondistended, normoactive bowel sounds present and non-tender Extremity: COMMON NORMALS: no pedal edema Neuro: COMMON NORMALS: patient oriented x3 Psych: COMMON NORMALS: mental status grossly normal Data 12/28/22 06:00 12/28/22 06:00 A&P Assessment and plan (1) Acute non-ST elevation myocardial infarction (NSTEMI): (2) Chest pain: (3) Hypertension: Plan Chest pain and NSTEMI Plan -Admit to CSU -Currently on heparin drip -Currently on nitroglycerin drip - telemetry monitoring -Loaded with Plavix , stopped -Aspirin, statin, beta-maria eugenia -morphine for pain as needed -Cardiology consulted status post cath -?1. #1 Left main distal 80% stenosed #2 LAD is moderate-sized with luminal irregularities, diagonal 1 is a moderate-sized in caliber vessel with luminal irregularity #3 Left circumflex is a moderate-sized in caliber nondominant vessel with luminal irregularity #4 Ramus intermedius has proximal 90% stenosis it is small to moderate-sized caliber vessel #5 RCA is dominant moderate-sized in caliber vessel with proximal and mid 80% stenosis. Left ventricular ejection fraction appeared to be moderately reduced at 40% with anterior apical and inferoapical hypokinesis Left ventricular end-diastolic pressure normal 8 mmHg. -Refer for CABG. -Currently awaiting bed at [facility] -Cardiology consulted -Full code -Heparin for DVT prophylaxis Attestations Medical Necessity Statement*: Patient requires hospitalization for multivessel CAD, awaiting transfer for CABG consideration Diagnoses Acute non-ST elevation myocardial infarction (NSTEMI) I21.4 Chest pain R07.9 Hypertension I10
[2022-12-28 19:21] LABS: Partial Thromboplastin Time 57.3 SECONDS (23.9-36.7)
[2022-12-28] MEDS: pantoprazole 40 mg SDV IVP (19:33)
--- NOTE | 2022-12-28 20:15 | USCV_ITS ---
Gerardo Hunter Age: 37 Gender: M : 1985 Exam Date: 12/28/2022 11:52 Ordering Phys: Jose Wu MD Technologist: CATALINA Exam Location: [facility] [place] Indication: chest pain BP: / HR: 64 Rhythm: Sinus Technical Quality: Adequate MEASUREMENTS (Male / Female) Normal Values 2D ECHO LV Diastolic Diameter PLAX 6.4 cm 4.2 - 5.9 / 3.9 - 5.3 cm LV Systolic Diameter PLAX 3.9 cm IVS Diastolic Thickness 0.7 cm 0.6 - 1.0 / 0.6 - 0.9 cm IVS Systolic Thickness 1.3 cm LVPW Diastolic Thickness 0.7 cm 0.6 - 1.0 / 0.6 - 0.9 cm LVPW Systolic Thickness 1.5 cm LVOT Diameter 2.1 cm LV Ejection Fraction 2D Teich 68.6 % LV Ejection Fraction MOD 2C 57.1 % LV Ejection Fraction 2C AL 57.1 % LA Diameter 3.1 cm IVC Diameter 1.7 cm M-MODE Aortic Annulus Diameter 2.9 cm LA Ao Ratio MM 1.1 MV E Point Septal Separation 0.6 cm DOPPLER AV Peak Velocity 118.0 cm/s LVOT Peak Velocity 105.7 cm/s AV Area Cont Eq vti 3.0 cm squared AV Area Cont Eq pk 3.2 cm squared MV Area PHT 5.0 cm squared Mitral E to A Ratio 1.0 MV E' Velocity 50.5 cm/s Mitral E to MV E' Ratio 8.4 Mitral E to LV E' Lateral Ratio 7.3 Mitral E to LV E' Septal Ratio 9.8 TV Peak E Velocity 68.0 cm/s FINDINGS Left Ventricle Mildly reduced left ventricular size and systolic function and wall thickness, global hypokinesis abnormalities. Left ventricular ejection fraction is estimated at 50 %. . Normal diastolic filling pattern. Right Ventricle The right ventricle is normal in size and function. Right Atrium The right atrium is normal in size. Left Atrium The left atrium is normal in size. Mitral Valve Structurally normal mitral valve without significant stenosis or prolapse. There is mild mitral regurgitation. Aortic Valve Structurally normal aortic valve without significant sclerosis or stenosis. There is no aortic regurgitation. Tricuspid Valve Structurally normal tricuspid valve without significant stenosis or regurgitation. Pulmonary artery systolic pressure is normal. Pulmonic Valve Structurally normal pulmonic valve without significant stenosis. There is no pulmonic regurgitation. Pericardium Normal pericardium without effusion. Aorta Normal ascending aorta dimension. IVC The inferior vena cava appears normal. CONCLUSIONS 1-Mildly reduced left ventricular size and systolic function and wall thickness, global hypokinesis abnormalities. Left ventricular ejection fraction is estimated at 50 %. . Normal diastolic filling pattern. 2-No significant valve abnormalities. 3-There is no pericardial effusion. 4-Right atrial pressure is around 5 mm of mercury. 5-There are no prior echocardiogram studies to compare. Vincenzo Hollingsworth MD (Electronically Signed) Final Date: 28 December 2022 14:21 S
[2022-12-28] MEDS: heparin drip 25,000 UNIT/500 ML PREMIX 24 UNIT IV (20:23)
[2022-12-28] MEDS: atorvastatin 40 mg Tablet 80 MG PO (20:50)
[2022-12-29] VITALS: BP 106/58; PULSE 59; RESP 17; TEMP 36.5; O2SAT 95
[2022-12-29 04:06] LABS: Basophils # 0.1 10^3/uL (0.0-0.1); Basophils % 0.7 %; Eosinophils # 0.2 10^3/uL (0.0-0.8); Eosinophils % 2.6 %; Hematocrit 44.6 % (42.0-52.0); Lymphocytes # 3.8 10^3/uL (0.8-4.8); Lymphocytes % 43.5 %; Mean Corpuscular HGB Conc 33.6 g/dL (30.0-36.0); Mean Corpuscular Hemoglobin 30.3 pg (28.0-34.0); Mean Corpuscular Volume 90.1 fl (80-94); Mean Platelet Volume 8.4 fL (7.4-10.4); Monocytes # 0.5 10^3/uL (0.2-0.9); Monocytes % 5.5 %; Neutrophils # 4.14 10^3/uL (1.8-7.7); Neutrophils % 47.5 %; Nucleated Red Blood Cells % 0 %; Platelet Count 204 10^3/cmm (130-400); Red Blood Count 4.95 10^6/uL (4.1-5.3); Red Cell Distribution Width 12.1 % (12.1-15.1); White Blood Count 8.7 10^3/uL (4.0-10.0)
[2022-12-29 05:14] VITALS: BP 120/70; PULSE 68; RESP 18; TEMP 36.8; O2SAT 99
[2022-12-29 06:00] VITALS: PULSE 49
[2022-12-29 06:32] LABS: Alanine Aminotransferase 33 U/L (0-41); Albumin Level 4.4 g/dL (3.5-5.2); Alkaline Phosphatase 55 U/L (40-130); Anion Gap 18.1 (5-19); Aspartate Amino Transferase 59 U/L (0-40); Blood Urea Nitrogen 10 mg/dL (6-20); Calcium 9.6 mg/dL (8.5-10.5); Carbon Dioxide 20 mmol/L (22-29); Chloride 106 mmol/L (98-107); Globulin 1.8 g/dL (1.3-4.6); Glomerular Filtration Rate 107.6 mL/min (90-130); Glucose 102 mg/dL (65-115); Magnesium 2.1 mg/dL (1.7-2.3); Osmolality Calculated 289 mOsm/kg (285-295); Phosphorus 2.9 mg/dL (2.5-4.5); Potassium 4.1 mmol/L (3.5-5.1); Sodium 140 mmol/L (136-145); Total Bilirubin 0.5 mg/dL (0.15-1.2); Total Protein 6.2 g/dL (6.6-8.7)
[2022-12-29 07:28] VITALS: BP 115/67; PULSE 64; RESP 18; TEMP 36.7; O2SAT 99
[2022-12-29] MEDS: aspirin 81 mg EC Tablet PO (08:33)
[2022-12-29] MEDS: metoprolol succinate ER (24 HR) 25 mg Tablet 12.5 MG PO (08:33)
[2022-12-29] MEDS: lisinopril 20 mg Tablet PO (08:33)
--- NOTE | 2022-12-29 09:16 | PM.PN ---
Subjective Subjective: Patient is feeling well. No more chest pain symptoms. He is awaiting transfer to [place] for bypass surgery. Vitals/I&O/Wt Last Vital Signs Temp 98.0 F 12/29/22 07:28 Pulse 64 12/29/22 07:28 Resp 18 12/29/22 07:28 BP 115/67 12/29/22 07:28 Pulse Ox 99 12/29/22 07:28 O2 Del Method Room Air 12/29/22 07:28 12/28/22 12/29/22 12/29/22 22:59 06:59 14:59 Intake Total 688.245 / 1528.245 480 / 480 Balance 688.245 / 1238.245 480 / 480 Weight last 48 hrs Weight 191 lb Physical Exam Narrative: Alert awake oriented x3 Heart regular sinus Lungs decreased breath sound but clear to auscultate INFORMATION RECEPTIONIST grossly nonfocal Data 12/29/22 03:59 12/29/22 05:21 A&P Assessment and plan (1) Acute non-ST elevation myocardial infarction (NSTEMI): (2) Hypertension: (3) Hyperlipidemia LDL goal <70: (4) LV dysfunction: Plan Patient has multivessel coronary artery disease. Plan for transfer to [place] for coronary artery bypass surgery today. Continue aspirin. Keep holding Plavix. High intensity statin therapy.Continue beta blockers Thank you for involving us with care of this patient. We will continue to follow. Please call with questions. Attestations Medical Necessity Statement*: Care expected to cross 2 midnights. Coding Level of Care Code Acute Code for [facility] Diagnoses Acute non-ST elevation myocardial infarction (NSTEMI) I21.4 Hypertension I10 Hyperlipidemia LDL goal <70 E78.5 LV dysfunction I51.9
[2022-12-29 11:52] VITALS: BP 135/60; PULSE 76; RESP 17; TEMP 36.7; O2SAT 98
[2022-12-29 14:30] VITALS: BP 135/60; PULSE 82; RESP 16; O2SAT 98
--- NOTE | 2022-12-29 14:31 | PC.NURSE ---
Patient being transferred to [facility] in [facility], patient left with Benito Charles at 14:30. Patient A&Ox4, vitals WNL.
--- NOTE | 2022-12-29 14:34 | PM.TDS ---
Transfer Summary Providers Date of Admission: 12/27/22 20:15 Date of Discharge/Transfer: 12/29/22 Attending Provider at Admission: Jose Wu MD Attending Provider at Transfer: Fabricio Hyatt Transfer Plans: Anticipated date of transfer: 12/29/22. Diagnoses at Discharge Discharge Diagnosis (1) Acute non-ST elevation myocardial infarction (NSTEMI): Status: Acute (2) Hypertension: Status: Acute (3) Hyperlipidemia LDL goal <70: Status: Acute (4) LV dysfunction: Status: Acute Reason for Visit Reason for Visit chest pain Hospital Course Hospital Course Pleasant 37-year-old gentleman with family history of coronary disease, current smoker, HTN, with off-and-on chest pain over the last few days, 1 episode woke him up from night, epigastric fullness, decided came to ER thinking it was GI related, subtle ST elevation on initial EKG in inferior leads septal leads mild depression, second troponin elevated up to 90, cardiology saw him urgently, he underwent left heart cath with finding of multivessel coronary disease, 70% distal left main, 99% proximal ramus intermedius and 80% proximal and mid RCA, with noted depressed EF 45-50%, with recommended bypass surgery, arrangements were made for additional assessment for CABG over at [facility] for which she was awaiting an open bed. On admit received a loading dose of Plavix on 12/27, 600 mg, initially treated with heparin drip, nitro drip, remains chest pain-free, nitro drip has been weaned off by cardiology. Continues on aspirin, statin, beta-maria eugenia, TRACIE inhibitor. Bed just opened and kindly accepted for further assessment and care over at [facility] in [place]. Physical Exam Narrative: States he is currently feeling well. Denies chest pain or pressure. No shortness of breath. Denies any complaints. Awaiting transfer to [facility]. Const: COMMON NORMALS: patient oriented x3 and alert GENERAL APPEARANCE: cooperative ORIENTATION/CONSCIOUSNESS: Yes awake HENMT: COMMON NORMALS: oropharynx normal Neck/C-Spine: COMMON NORMALS: no JVD Resp: COMMON NORMALS: normal respiratory effort and clear to auscultation bilaterally AUSCULTATION: clear to auscultation bilaterally Cardio: COMMON NORMALS: no JVD, regular rhythm, S1 normal heart sound present, S2 normal heart sound present and No murmurs present (Cardio) RHYTHM: regular rhythm HEART SOUNDS: S1 normal heart sound present and S2 normal heart sound present GI: COMMON NORMALS: Normal to inspection, nondistended, normoactive bowel sounds present, Soft to palpation and non-tender PALPATION: Yes Soft to palpation Extremity: COMMON NORMALS: no joint enlargement and no pedal edema Neuro: COMMON NORMALS: patient oriented x3 and moves all extremities SENSORIUM/ORIENTATION: Yes alert Skin: COMMON NORMALS: no rashes or lesions noted GENERAL SKIN EXAM: no rashes or lesions noted TS Data Studies Completed and Pending Pending at discharge Category Date Time Status PTT [Partial Thromboplastin Time] Timed Lab 12/29/22 16:00 Ordered Labs from last 24 hours 12/29/22 12/29/22 12/29/22 05:21 03:59 03:59 WBC RBC Hgb Hct MCV MCH MCHC RDW Plt Count MPV Neut % (Auto) Lymph % (Auto) [place] % (Auto) Eos % (Auto) Baso % (Auto) Neut # (Auto) Lymph # (Auto) [place] # (Auto) Eos # (Auto) Baso # (Auto) Nucleated RBC % (auto) Nucleated RBCs # APTT 70.0 H Sodium 140 Cancelled Potassium 4.1 Cancelled Chloride 106 Cancelled Carbon Dioxide 20 L Cancelled Anion Gap 18.1 Cancelled BUN 10 Cancelled Creatinine 0.8 Cancelled GFR Calculation 107.6 Cancelled Glucose 102 Cancelled Calculated Osmolality 289 Cancelled Calcium 9.6 Cancelled Phosphorus 2.9 Cancelled Magnesium 2.1 Cancelled Total Bilirubin 0.5 Cancelled AST 59 H Cancelled ALT 33 Cancelled Alkaline Phosphatase 55 Cancelled Total Protein 6.2 L Cancelled Albumin 4.4 Cancelled Globulin 1.8 Cancelled 12/29/22 12/28/22 03:59 18:58 WBC 8.7 RBC 4.95 Hgb 15.0 Hct 44.6 MCV 90.1 MCH 30.3 MCHC 33.6 RDW 12.1 Plt Count 204 MPV 8.4 Neut % (Auto) 47.5 Lymph % (Auto) 43.5 [place] % (Auto) 5.5 Eos % (Auto) 2.6 Baso % (Auto) 0.7 Neut # (Auto) 4.14 Lymph # (Auto) 3.8 [place] # (Auto) 0.5 Eos # (Auto) 0.2 Baso # (Auto) 0.1 Nucleated RBC % (auto) 0 Nucleated RBCs # 0.0 APTT 57.3 H Sodium Potassium Chloride Carbon Dioxide Anion Gap BUN Creatinine GFR Calculation Glucose Calculated Osmolality Calcium Phosphorus Magnesium Total Bilirubin AST ALT Alkaline Phosphatase Total Protein Albumin Globulin Completed Studies During Hospitalization Category Date Time Status 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 echo complete* [id number] Routine Ultrasound 12/28/22 20:15 Completed Laboratory Last Values WBC 8.7 10^3/uL (4.0-10.0) 12/29/22 03:59 RBC 4.95 10^6/uL (4.1-5.3) 12/29/22 03:59 Hgb 15.0 g/dL (11.7-16.6) 12/29/22 03:59 Hct 44.6 % (42.0-52.0) 12/29/22 03:59 MCV 90.1 fl (80-94) 12/29/22 03:59 MCH 30.3 pg (28.0-34.0) 12/29/22 03:59 MCHC 33.6 g/dL (30.0-36.0) 12/29/22 03:59 RDW 12.1 % (12.1-15.1) 12/29/22 03:59 Plt Count 204 10^3/cmm (130-400) 12/29/22 03:59 MPV 8.4 fL (7.4-10.4) 12/29/22 03:59 Neut % (Auto) 47.5 % 12/29/22 03:59 Lymph % (Auto) 43.5 % 12/29/22 03:59 [place] % (Auto) 5.5 % 12/29/22 03:59 Eos % (Auto) 2.6 % 12/29/22 03:59 Baso % (Auto) 0.7 % 12/29/22 03:59 Neut # (Auto) 4.14 10^3/uL (1.8-7.7) 12/29/22 03:59 Lymph # (Auto) 3.8 10^3/uL (0.8-4.8) 12/29/22 03:59 [place] # (Auto) 0.5 10^3/uL (0.2-0.9) 12/29/22 03:59 Eos # (Auto) 0.2 10^3/uL (0.0-0.8) 12/29/22 03:59 Baso # (Auto) 0.1 10^3/uL (0.0-0.1) 12/29/22 03:59 Nucleated RBC % (auto) 0 % 12/29/22 03:59 Nucleated RBCs # 0.0 /100WBC 12/29/22 03:59 ESR 9 mm/hr (0-10) 12/27/22 14:48 APTT 70.0 SECONDS (23.9-36.7) H 12/29/22 03:59 Sodium 140 mmol/L (136-145) 12/29/22 05:21 Potassium 4.1 mmol/L (3.5-5.1) 12/29/22 05:21 Chloride 106 mmol/L (98-107) 12/29/22 05:21 Carbon Dioxide 20 mmol/L (22-29) L 12/29/22 05:21 Anion Gap 18.1 (5-19) 12/29/22 05:21 BUN 10 mg/dL (6-20) 12/29/22 05:21 Creatinine 0.8 mg/dL (0.7-1.2) 12/29/22 05:21 GFR Calculation 107.6 mL/min (90-130) 12/29/22 05:21 Glucose 102 mg/dL (65-115) 12/29/22 05:21 Estimat Average Glucose 108 12/27/22 14:48 Hemoglobin A1c 5.4 % (4.0-6.0) 12/27/22 14:48 Calculated Osmolality 289 mOsm/kg (285-295) 12/29/22 05:21 Calcium 9.6 mg/dL (8.5-10.5) 12/29/22 05:21 Phosphorus 2.9 mg/dL (2.5-4.5) 12/29/22 05:21 Magnesium 2.1 mg/dL (1.7-2.3) 12/29/22 05:21 Total Bilirubin 0.5 mg/dL (0.15-1.2) 12/29/22 05:21 AST 59 U/L (0-40) H 12/29/22 05:21 ALT 33 U/L (0-41) 12/29/22 05:21 Alkaline Phosphatase 55 U/L (40-130) 12/29/22 05:21 Troponin T Baseline 10 ng/L (0-15) 12/27/22 14:48 Troponin T 120 Minute 90.83 ng/L (0-15) H 12/27/22 16:32 Delta Troponin T 80.83 ABS# (0-10) H* 12/27/22 16:32 Troponin T Hi Sens 6Hr 2030 ng/L (0-15) H 12/27/22 20:33 Troponin T Hi Sens 6Hr Delta 2020 ng/L (0-12) H* 12/27/22 20:33 C-Reactive Protein 3.0 mg/L (0.0-4.9) 12/27/22 16:32 NT-Pro-B Natriuret Pep 72 pg/mL (0-125) 12/27/22 16:32 Total Protein 6.2 g/dL (6.6-8.7) L 12/29/22 05:21 Albumin 4.4 g/dL (3.5-5.2) 12/29/22 05:21 Globulin 1.8 g/dL (1.3-4.6) 12/29/22 05:21 Triglycerides 252 mg/dL (0-150) H 12/27/22 16:32 Cholesterol 290 mg/dL (0-200) H 12/27/22 16:32 LDL Cholesterol, Calc 237 mg/dL (50-129) H 12/27/22 16:32 HDL Cholesterol 3 mg/dL (60-100) L 12/27/22 16:32 LDL/HDL Ratio 79.00 RATIO (0.00-3.22) H 12/27/22 16:32 Cholesterol/HDL Ratio 96.67 mg/dL (1.0-5.00) H 12/27/22 16:32 TSH 1.57 uIU/mL (0.27-4.20) 12/27/22 16:32 Radiology Impressions Chest X-Ray 12/27/22 14:37 IMPRESSION: No acute findings. Recent Clincial Data Last Vital Signs Temp 98.1 F 12/29/22 11:52 Pulse 82 12/29/22 14:30 Resp 16 12/29/22 14:30 BP 135/60 12/29/22 14:30 Pulse Ox 98 12/29/22 14:30 O2 Del Method Room Air 12/29/22 11:52 Vital Signs Temp Pulse Resp BP Pulse Ox O2 Del Method 12/29/22 14:30 82 16 135/60 98 12/29/22 11:52 98.1 F 76 17 135/60 98 Room Air 12/29/22 07:28 98.0 F 64 18 115/67 99 Room Air 12/29/22 06:00 49 L 12/29/22 05:14 98.2 F 68 18 120/70 99 Intake & Output/Weight 12/27/22 12/28/22 12/29/22 12/30/22 06:59 06:59 06:59 06:59 Intake Total 731.755 / 262.950 6579.245 / 1528.245 784.425 / 784.425 Output Total 350 / 350 290 / 290 Balance 381.755 / 421.883 2783.245 / 1238.245 784.425 / 784.425 Weight 86.636 kg Vitals Last Vital Signs Temp 98.1 F 12/29/22 11:52 Pulse 82 12/29/22 14:30 Resp 16 12/29/22 14:30 BP 135/60 12/29/22 14:30 Pulse Ox 98 12/29/22 14:30 O2 Del Method Room Air 12/29/22 11:52 TS Medications Medications Discontinued Medications Acetaminophen (Acetaminophen 325 Mg Tablet) 650 mg PO Q6H PRN PRN Reason: MILD PAIN Al Hydrox/Mg Hydrox/Simethicone (Iwmd-Ifl-Psnlvbdhd-Joaquim 30 Ml Udc) 30 ml PO Q15M PRN PRN Reason: INDIGESTION Alprazolam (Alprazolam 0.5 Mg Tablet) 0.25 mg PO TID PRN PRN Reason: ANXIETY Aspirin (Aspirin 81 Mg Chew Tablet) 324 mg PO NOW ONE Stop: 12/27/22 17:31 Last Admin: 12/27/22 17:55 Dose: 324 mg Aspirin (Aspirin 81 Mg Ec Tablet) 81 mg PO DAILY BELLA Last Admin: 12/29/22 08:33 Dose: 81 mg Atorvastatin Calcium (Atorvastatin 40 Mg Tablet) 80 mg PO BEDTIME BELLA Last Admin: 12/28/22 20:50 Dose: 80 mg Atropine Sulfate (Atropine 1 Mg/Ml Sdv 1 Ml) 0.5 mg IVP PRN PRN PRN Reason: Symptomatic bradycardia Clopidogrel Bisulfate (Clopidogrel 300 Mg Tablet) 600 mg PO ONCE ONE Stop: 12/27/22 17:46 Last Admin: 12/27/22 17:59 Dose: 600 mg Al Hydrox/Mg Hydrox/Simethicone 30 ml/ Sucralfate 1 gm 0 ml PO ONCE ONE Stop: 12/27/22 15:52 Last Admin: 12/27/22 15:57 Dose: 1 suspension Fentanyl (Fentanyl 50 Mcg/Ml Inj 2ml) Confirm Administered Dose 100 mcg .ROUTE .STK-MED ONE Stop: 12/27/22 19:02 Heparin Sodium (Porcine) (Heparin 5,000 Unit/Ml Inj 1 Ml) 0 unit IV PRN PRN; Protocol PRN Reason: Heparin weight-base protocol Last Admin: 12/27/22 17:53 Dose: 4,300 unit Heparin Sodium (Porcine) (Heparin 5,000 Unit/Ml Inj 1 Ml) Confirm Administered Dose 10,000 unit .ROUTE .STK-MED ONE Stop: 12/27/22 19:02 Heparin Sodium/Sodium Chloride (Heparin Drip) 25,000 unit in 500 mls @ 0 mls/hr IV .Q0M BELLA; Protocol Last Admin: 12/28/22 20:23 Dose: 13.85 unit/kg/hr, 24 mls/hr Nitroglycerin/Dextrose (Nitroglycerin Drip) 50 mg in 250 mls @ 0 mls/hr IV .Q0M BELLA; Protocol Last Titration: 12/29/22 12:54 Dose: 0 mcg/min, 0 mls/hr Lidocaine HCl (Xylocaine) Confirm Administered Dose 3 mls @ as directed .ROUTE .STK-MED ONE Stop: 12/27/22 19:02 Sodium Chloride (Sodium Chloride 0.9%) Confirm Administered Dose 1,000 mls @ as directed .ROUTE .STK-MED ONE Stop: 12/27/22 19:21 Lisinopril (Lisinopril 20 Mg Tablet) 20 mg PO DAILY FOR[facility]LY [facility], [facility] Last Admin: 12/29/22 08:33 Dose: 20 mg Magnesium Hydroxide (Magnesium Hydroxide 30 Ml Udc) 30 ml PO DAILY PRN PRN Reason: CONSTIPATION Metoprolol Succinate (Metoprolol Succinate Er (24 Hr) 25 Mg Tablet) 12.5 mg PO DAILY FOR[facility]LY [facility], [facility]1983 Last Admin: 12/29/22 08:33 Dose: 12.5 mg Midazolam HCl (Midazolam 1 Mg/Ml Inj 2 Ml) Confirm Administered Dose 2 mg .ROUTE .STK-MED ONE Stop: 12/27/22 19:02 Midazolam HCl (Midazolam 1 Mg/Ml Inj 2 Ml) Confirm Administered Dose 2 mg .ROUTE .STK-MED ONE Stop: 12/27/22 19:30 Midazolam HCl (Midazolam 1 Mg/Ml Inj 2 Ml) Confirm Administered Dose 2 mg .ROUTE .STK-MED ONE Stop: 12/27/22 19:42 Morphine Sulfate (Morphine 4 Mg/Ml Sdv 1 Ml) 2 mg IVP Q4H PRN PRN Reason: SEVERE PAIN Naloxone HCl (Naloxone 0.4 Mg/Ml Sdv) 0.1 mg IVP Q2M PRN PRN Reason: RESPIRATORY RATE < 8/MIN Nitroglycerin (Nitroglycerin 5 Mg/Ml Sdv 10 Ml) Confirm Administered Dose 50 mg .ROUTE .STK-MED ONE Stop: 12/27/22 19:02 Nitroglycerin (Nitroglycerin 0.4 Mg Sublingual Tablet) 0.4 mg SUBLINGUAL Q5M PRN PRN Reason: CHEST PAIN Ondansetron HCl (Ondansetron 2 Mg/Ml Sdv 2 Ml) 4 mg IVP Q6H PRN PRN Reason: NAUSEA AND VOMITING Pantoprazole Sodium (Pantoprazole 40 Mg Sdv) 40 mg IVP Q24H [facility], [facility] Last Admin: 12/28/22 19:33 Dose: 40 mg Temazepam (Temazepam 15 Mg Capsule) 15 mg PO BEDTIME PRN PRN Reason: INSOMNIA Allergies No Known Allergies Allergy (Verified 12/27/22 10:49) Home Medications lisinopril 20 mg tablet 20 mg PO DAILY #30 tabs 12/08/22 [Rx Confirmed 12/27/22] metoprolol succinate 25 mg tablet,extended release 24 hr (Toprol XL) 25 mg PO DAILY #30 tabs 12/08/22 [Rx Confirmed 12/27/22] Discharge Plan Discharge Patient Disposition: Xfer Short-Term Hosp Condition: Stable Prescriptions: No Action metoprolol succinate [Toprol XL] 25 mg tablet extended release 24 hr 25 mg PO DAILY Qty: 30 0RF lisinopril 20 mg tablet 20 mg PO DAILY Qty: 30 0RF Patient Instructions: Opioid Safety Transfer Attestations Time Spent in Transfer Care: greater than 30 min Quality Metrics Clinical Quality Measures [ Acute Myocardial Infaction { Clinical Trial Participant: No; Contraindication to aspirin: None; Aspirin prescribed; Contraindication to statin: None; Statin prescribed; Contraindication to PCI: Further opinion sought;}] Coding Level of Care Code 15479 Total time (in minutes) for Discharge: 45 Diagnoses Acute non-ST elevation myocardial infarction (NSTEMI) I21.4 Hypertension I10 Hyperlipidemia LDL goal <70 E78.5 LV dysfunction I51.9
== END 2022-12-29 14:30 | disposition short-term general hospital (02) | DRG 282 ==
LOC: ER 17:57 → CSU 12-28 06:04
PROVIDERS: Internal Medicine; Internal Medicine Cardiovascular Disease; Admitting Provider Family Medicine; Emergency Provider Family Medicine; Visit Provider Internal Medicine
DX: I21.4 Non-ST elevation (NSTEMI) myocardial infarction (principal); I10 Essential (primary) hypertension; F17.200 Nicotine dependence, unspecified, uncomplicated; Z82.49 Family history of ischemic heart disease and other diseases of the circulatory system; I25.10 Atherosclerotic heart disease of native coronary artery without angina pectoris; E78.5 Hyperlipidemia, unspecified
CPT/HCPCS: 36415; 71045; 80053; 80061; 83036; 83735; 83880; 84100; 84443; 84484; 85025; 85347; 85651; 85730; 86140; 93005; 93306; 93458; 96365; 96366; 96367; 96374; 96375; 96376; 99152; 99153; 99285; C1769; C1887; C1894; C9113; J1644; J2250; J3010; J3490; J7030; Q9967

== ENCOUNTER 2023-11-22 16:04 | Emergency (ER) | payer BC, SELFPAY ==
--- NOTE | 2023-11-22 16:08 | XRR_ITS ---
PROCEDURE INFORMATION: Exam: XR Chest Exam date and time: 11/22/2023 4:53 PM Age: 38 years old Clinical indication: Chest pressure; Patient HX: Chest pain TECHNIQUE: Imaging protocol: Radiologic exam of the chest. Views: 1 view. COMPARISON: CR XR chest 1V portable [id number] 12/27/2022 2:46 PM FINDINGS: Lungs: The lungs are clear. No pulmonary consolidation. Pleural spaces: No pleural effusion or pneumothorax. Heart/Mediastinum: Heart size is within normal limits. Bones/joints: The patient is status post sternotomy. No acute osseous abnormalities are seen. XR/XR chest 1V portable [id number] IMPRESSION: No acute cardiopulmonary disease.
--- NOTE | 2023-11-22 16:09 | ECG_ITS ---
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 Measurements Intervals [place] Rate: 77 P: 67 OK: 173 QRS: -42 QRSD: 104 T: 74 QT: 382 QTc: 433 Interpretive Statements SINUS RHYTHM LEFT AXIS DEVIATION [QRS AXIS < -30] PATTERN CONSISTENT WITH PULMONARY DISEASE NONSPECIFIC T-WAVE ABNORMALITY Compared to ECG 12/27/2022 17:31:01 Left-axis deviation now present Ventricular premature complex(es) no longer present Incomplete right bundle-branch block no longer present T-wave abnormality still present Electronically Signed On 11-23-2023 14:45:41 CDT by Vignesh Duran M.D. [email or web address]
[2023-11-22 16:11] VITALS: BP 173/100; PULSE 82; RESP 17; TEMP 37; O2SAT 98; BMI 29.2
--- NOTE | 2023-11-22 16:37 | W.ED.CHESTPA ---
HPI - Chest Pain General: Chief Complaint: Chest Pain Stated Complaint: CP Time Seen by Provider: 11/22/23 16:27 History of Present Illness: 38-year-old male patient comes in today with some chest discomfort since . Patient states that he was at work and started feeling poorly. Patient was seen at urgent care clinic and was told that most likely was upper respiratory infection and they started him on some amoxicillin. Patient did have a bypass about 1 year ago. Patient is a smoker but no other chronic medical problems besides his heart disease. Patient was told due to his smoking and poor genetics is recommended him to have coronary artery disease. Patient does take routine medicines for cholesterol and blood pressure. Patient appears nontoxic. Patient does report anxiety. Patient was able to weed eat and mow the lawn yesterday without any distress. Review of Systems General: Reports: 10 or more systems reviewed and unremarkable except in HPI and below Card: Reports: chest pain [facility] ED PFSH: Medical History Coronary artery disease LV dysfunction Hyperlipidemia LDL goal <70 Hypertension Surgical History S/P CABG x 3 History of hand surgery History of eye surgery lazy eye correction S/P CABG (coronary artery bypass graft) No pertinent past surgical history Family History Father CAD (coronary artery disease) Cancer Rare thyroid or esophagus Mother CAD (coronary artery disease) Cancer Breast Grandmother CAD (coronary artery disease) Other Hypertension Denies family history of Diabetes Clotting disorder Dementia Hyperlipidemia Psychiatric illness Chronic kidney disease (CKD) Anesthesia complication Bleeding disorder Lung disease Stroke Social History Smoking and tobacco/nicotine status: former use of tobacco/nicotine Alcohol intake: never Substance/Drug Use: never Lives independently: Yes Marital status: Single Number of children: 0 Current occupational status: employed Current occupation: [employer] Special giovanna needs: No Agree to transfusion: Yes Physical Exam Const: COMMON NORMALS: alert HENMT: HEAD & SCALP: normal to inspection Neck/C-Spine: COMMON NORMALS: full ROM Chest: CHEST: Yes tenderness (Left chest wall) Resp: COMMON NORMALS: normal respiratory effort and clear to auscultation bilaterally AUSCULTATION: clear to auscultation bilaterally Cardio: COMMON NORMALS: regular rate and regular rhythm RATE: regular rate RHYTHM: regular rhythm GI: COMMON NORMALS: Soft to palpation and non-tender PALPATION: Yes Soft to palpation Back/Pelvis: COMMON NORMALS: thoracic and lumbar spine normal to inspection Extremity: COMMON NORMALS: no pedal edema Neuro: SENSORIUM/ORIENTATION: Yes alert Skin: LESIONS: lesion noted (Small insect bite to the left biceps area) Course Vital Signs: Vital signs: Vital Signs Temperature 98.6 F 11/22/23 16:11 Pulse Rate 72 11/22/23 16:38 Respiratory Rate 16 11/22/23 16:38 Blood Pressure 165/112 11/22/23 16:38 Pulse Oximetry 97 11/22/23 16:38 Oxygen Delivery Me thod Room Air 11/22/23 16:38 MDM - Chest Pain Medical Decision Making 38-year-old male patient comes in today for complaints of chest pain and some left arm pain since . Patient reports arm pain started yesterday but he believes it may be secondary to insect bite. Patient had a bypass about a year ago. Patient started having discomfort on and was seen at urgent care clinic who told him he had an upper respiratory infection making him feel bad. On exam respirations are even lungs are clear. Posterior pharynx is pink and moist. Vital signs are normal except for elevated blood pressure. Differential diagnosis includes but not limited to anxiety about health, ACS, costochondritis, muscle strain, CHF. EKG was unremarkable. CBC and CMP was normal. Lipase was normal. Troponin was less than 6. Chest x-ray noted no effusion or infiltrates. Most likely patient has some musculoskeletal chest pain from his increased activity and the arm pain was more likely due to that while staying from yesterday. I recommended acetaminophen and ibuprofen. Recommend return to the ER for fever, increasing shortness of breath, or uncontrolled pain. Patient was reassured and was discharged home with instructions to follow-up with primary care or return to ED for worsening symptoms. Lab Data 11/22/23 16:32 11/22/23 16:32 Laboratory Results WBC 7.03 10^3/uL (3.29-11.43) 11/22/23 16:32 RBC 5.36 10^6/uL (3.85-5.65) 11/22/23 16:32 Hgb 16.10 g/dL (11.27-16.99) 11/22/23 16:32 Hct 46.2 % (37-53) 11/22/23 16:32 MCV 86.2 fl (82-101) 11/22/23 16:32 MCH 30.0 pg (27-33) 11/22/23 16:32 MCHC 34.8 g/dL (30-55) 11/22/23 16:32 RDW 11.7 % (12.1-15.1) L 11/22/23 16:32 Plt Count 222 10^3/cmm (157-399) 11/22/23 16:32 MPV 8.6 fL (7.4-10.4) 11/22/23 16:32 Neut % (Auto) 61.6 % 11/22/23 16:32 Lymph % (Auto) 29.6 % 11/22/23 16:32 [place] % (Auto) 5.7 % 11/22/23 16:32 Eos % (Auto) 2.3 % 11/22/23 16:32 Baso % (Auto) 0.7 % 11/22/23 16:32 Neut # (Auto) 4.33 10^3/uL (1.8-7.7) 11/22/23 16:32 Lymph # (Auto) 2.1 10^3/uL (0.8-4.8) 11/22/23 16:32 [place]mers # (Auto) 0.4 10^3/uL (0.2-0.9) 11/22/23 16:32 Eos # (Auto) 0.2 10^3/uL (0.0-0.8) 11/22/23 16:32 Baso # (Auto) 0.1 10^3/uL (0.0-0.1) 11/22/23 16:32 Nucleated RBC % (auto) 0 % 11/22/23 16:32 Nucleated RBCs # 0.0 /100WBC 11/22/23 16:32 Sodium 138 mmol/L (136-145) 11/22/23 16:32 Potassium 4.2 mmol/L (3.5-5.1) 11/22/23 16:32 Chloride 105 mmol/L (98-107) 11/22/23 16:32 Carbon Dioxide 25 mmol/L (22-29) 11/22/23 16:32 Anion Gap 12.2 (5-19) 11/22/23 16:32 BUN 16 mg/dL (6-20) 11/22/23 16:32 Creatinine 0.9 mg/dL (0.7-1.2) 11/22/23 16:32 GFR Calculation 93.5 mL/min (90-130) 11/22/23 16:32 Glucose 103 mg/dL (65-115) 11/22/23 16:32 Calculated Osmolality 287 mOsm/kg (285-295) 11/22/23 16:32 Calcium 9.6 mg/dL (8.5-10.5) 11/22/23 16:32 Total Bilirubin 0.6 mg/dL (0.15-1.2) 11/22/23 16:32 AST 23 U/L (0-40) 11/22/23 16:32 ALT 37 U/L (0-41) 11/22/23 16:32 Alkaline Phosphatase 56 U/L (40-130) 11/22/23 16:32 Troponin T Baseline 8 ng/L (0-15) 11/22/23 16:32 Total Protein 7.3 g/dL (6.6-8.7) 11/22/23 16:32 Albumin 4.9 g/dL (3.5-5.2) 11/22/23 16:32 Globulin 2.4 g/dL (1.3-4.6) 11/22/23 16:32 Lipase 21 U/L (13-60) 11/22/23 16:32 XR interpretation done by ED provider, pending radiology final review EKG Data EKG 1: I personally reviewed and interpreted this EKG as follows: EKG interpretation date: 11/22/23 EKG interpretation time: 16:43 Prior EKG tracings: not available for review Interpretation: EKG shows a sinus rhythm with a regular rate at [address] elevation or ectopy is noted. EKG was reviewed with Dr. Howe, attending ER physician. No prior exam was available for comparison. Computer generated interpretation: Sinus rhythm, left axis deviation, pattern consistent with pulmonary disease, nonspecific T wave abnormality, abnormal EKG, unconfirmed report. Discharge Plan Discharge Patient Disposition: Home Clinical Impression: Anterior chest wall pain Condition: Stable Prescriptions: No Action nitroglycerin 0.4 mg tablet, sublingual 0.4 mg sublingual Q5M PRN Rx Instructions: do not exceed 3 doses per episode Repatha SureClick 140 mg/mL pen injector SUBCUT metoprolol succinate [Toprol XL] 25 mg tablet extended release 24 hr 12.5 mg PO DAILY Qty: 90 1RF aspirin 325 mg tablet 325 mg PO DAILY Qty: 90 1RF atorvastatin 80 mg tablet 80 mg PO DAILY Qty: 90 1RF Discharge Orders: Discharge ED (Routine); Ordered 11/22/23 Ordered By: Geovanni Tamez Referrals: Jc Rico MD [Primary Care Provider] - Discharge Diet: Usual diet Discharge Activity: Increase activity as tolerated Patient Instructions: Chest Pain - Chest Wall Activity Restrictions/Additional Instructions: Home and rest. Drink plenty of fluids. Use acetaminophen or ibuprofen as needed for pain and discomfort. Follow-up with primary care for further instructions. Return to ED for worsening symptoms such as high fever greater than 100.4, increasing chest pain, shortness of breath. Coding Level of Care Code ED Molded Candles Wicker for Simin Bangura
[2023-11-22 16:38] VITALS: BP 165/112; PULSE 72; RESP 16; O2SAT 97
[2023-11-22 16:39] LABS: Basophils # 0.1 10^3/uL (0.0-0.1); Basophils % 0.7 %; Eosinophils # 0.2 10^3/uL (0.0-0.8); Eosinophils % 2.3 %; Hematocrit 46.2 % (37-53); Lymphocytes # 2.1 10^3/uL (0.8-4.8); Lymphocytes % 29.6 %; Mean Corpuscular HGB Conc 34.8 g/dL (30-55); Mean Corpuscular Volume 86.2 fl (82-101); Mean Platelet Volume 8.6 fL (7.4-10.4); Monocytes # 0.4 10^3/uL (0.2-0.9); Monocytes % 5.7 %; Neutrophils # 4.33 10^3/uL (1.8-7.7); Neutrophils % 61.6 %; Nucleated Red Blood Cells % 0 %; Platelet Count 222 10^3/cmm (157-399); Red Blood Count 5.36 10^6/uL (3.85-5.65); Red Cell Distribution Width 11.7 % (12.1-15.1); White Blood Count 7.03 10^3/uL (3.29-11.43)
[2023-11-22 16:58] LABS: Alanine Aminotransferase 37 U/L (0-41); Albumin Level 4.9 g/dL (3.5-5.2); Alkaline Phosphatase 56 U/L (40-130); Anion Gap 12.2 (5-19); Aspartate Amino Transferase 23 U/L (0-40); Blood Urea Nitrogen 16 mg/dL (6-20); Calcium 9.6 mg/dL (8.5-10.5); Carbon Dioxide 25 mmol/L (22-29); Chloride 105 mmol/L (98-107); Creatinine Clr Calc Pharmacy 117.0926; Globulin 2.4 g/dL (1.3-4.6); Glomerular Filtration Rate 93.5 mL/min (90-130); Glucose 103 mg/dL (65-115); Lipase 21 U/L (13-60); Osmolality Calculated 287 mOsm/kg (285-295); Potassium 4.2 mmol/L (3.5-5.1); Sodium 138 mmol/L (136-145); Total Bilirubin 0.6 mg/dL (0.15-1.2); Total Protein 7.3 g/dL (6.6-8.7)
[2023-11-22 17:00] LABS: Troponin(5th) Baseline 8 ng/L (0-15)
[2023-11-22 17:18] VITALS: BP 143/99; PULSE 78; RESP 15; TEMP 37; O2SAT 97
== END 2023-11-22 17:18 | disposition home or self-care (01) ==
PROVIDERS: Emergency Medicine; Emergency Provider Nurse Practitioner Family; PCP Family Medicine
DX: R07.89 Other chest pain (principal); Z79.82 Long term (current) use of aspirin; Z87.891 Personal history of nicotine dependence; I25.10 Atherosclerotic heart disease of native coronary artery without angina pectoris; E78.5 Hyperlipidemia, unspecified; I10 Essential (primary) hypertension; Z95.1 Presence of aortocoronary bypass graft
CPT/HCPCS: 71045; 80053; 83690; 84484; 85025; 93005; 99285

== ENCOUNTER 2023-12-27 18:52 | Emergency (ER) | payer BC, SELFPAY ==
[2023-12-27] VITALS (7 sets, daily range): BP systolic 120–155; BP diastolic 70–95; PULSE 63–82; RESP 14; TEMP 36.8; O2SAT 98–100
--- NOTE | 2023-12-27 19:53 | USR_ITS ---
PROCEDURE INFORMATION: Exam: US Duplex Right Lower Extremity Arteries Or Arterial Bypass Grafts Exam date and time: 12/27/2023 9:32 PM Age: 38 years old Clinical indication: Edema, localized; Lower extremity, right; Prior surgery; Surgery date: Post-operative (0-2 days); Surgery type: Angio cath performed Sunday 12/24. No pseudo aneurysm identified at this time. ; Additional info: Worsening swelling after cath TECHNIQUE: Imaging protocol: Right Real-time duplex scan of the arteries or arterial bypass grafts of the right lower extremity with 2-D gavin scale, color Doppler flow and spectral waveform analysis. Images documented and saved. COMPARISON: No relevant prior studies available. FINDINGS: Right common femoral artery: No occlusion or significant stenosis. Normal waveform. No pseudoaneurysm in the inguinal region. Right superficial femoral artery: No occlusion or significant stenosis. Normal waveform. Right popliteal artery: No occlusion or significant stenosis. Normal waveform. Right calf/foot arteries: No occlusion or significant stenosis in the visualized arteries. Normal waveforms. Dorsalis pedis artery is patent. Soft tissues: No hematoma or collection. US/[place] [id number] IMPRESSION: No stenosis or occlusion. No pseudoaneurysm identified.
--- NOTE | 2023-12-27 20:06 | W.ED.MALEGU ---
Documented by User: Nohemy Villegas MD 12/27/23 20:09 HPI - Male Genitourinary General: Chief complaint: Urogenital-Male Stated complaint: Groin pain Time Seen by Provider: 12/27/23 19:48 History of Present Illness: 38-year-old man with history of coronary artery disease and CABG who had a cath done couple days ago. He had this done at [facility] where he had his CABG done. He had had some swelling in his groin and was watched overnight for this. Apparently had stabilized. Today his dog jumped on his leg and he developed more bruising near where the spot was he was told to come to the emergency room if he had any further bleeding. He does have some increased swelling on the lateral side of his groin. This seems to be a bruise. No increased pain. He is neurovascularly intact Review of Systems Narrative: Constitutional symptoms: Negative except as documented in HPI. Skin symptoms: Negative except as documented in HPI. Eye symptoms: Negative except as documented in HPI. ENMT symptoms: Negative except as documented in HPI. Respiratory symptoms: Negative except as documented in HPI. Cardiovascular symptoms: Negative except as documented in HPI. Gastrointestinal symptoms: Negative except as documented in HPI. Genitourinary symptoms: Negative except as documented in HPI. Musculoskeletal symptoms: Negative except as documented in HPI. Neurologic symptoms: Negative except as documented in HPI. Psychiatric symptoms: Negative except as documented in HPI. Endocrine symptoms: Negative except as documented in HPI. [facility] ED PFSH: Medical History (Updated 12/27/23 @ 22:27 by JOVANNY Jones) Prediabetes Coronary artery disease LV dysfunction Hyperlipidemia LDL goal <70 Hypertension Surgical History S/P CABG x 3 History of hand surgery History of eye surgery lazy eye correction S/P CABG (coronary artery bypass graft) No pertinent past surgical history Family History Father CAD (coronary artery disease) Cancer Rare thyroid or esophagus Mother CAD (coronary artery disease) Cancer Breast Grandmother CAD (coronary artery disease) Other Hypertension Denies family history of Diabetes Clotting disorder Dementia Hyperlipidemia Psychiatric illness Chronic kidney disease (CKD) Anesthesia complication Bleeding disorder Lung disease Stroke Social History Smoking and tobacco/nicotine status: former use of tobacco/nicotine Alcohol intake: never Substance/Drug Use: never Lives independently: Yes Marital status: Single Number of children: 0 Current occupational status: employed Current occupation: [employer] Special giovanna needs: No Agree to transfusion: Yes Physical Exam Narrative: EXAM NARRATIVE: General: Alert, no acute distress. Skin: warm and dry Head: Normocephalic Neck: Trachea midline Eye: Extraocular movements are intact. Ears, nose, mouth and throat: Oral mucosa moist Respiratory: Respirations are non-labored Musculoskeletal: Normal ROM Cardiovascular: There is quite a bit of bruising in the right groin. The new bruising is compared to a photo he took earlier in the day his lateral and does not seem like it likely be due to bleeding from his surgical site but an ultrasound is being ordered to confirm this. Neurological: Alert and oriented, No focal neurological deficit observed. Psychiatric: Cooperative, appropriate mood & affect. Course Vital Signs: Vital signs: Vital Signs Temperature 98.2 F 12/27/23 18:55 Pulse Rate 66 12/27/23 22:30 Respiratory Rate 14 12/27/23 18:55 Blood Pressure 124/74 12/27/23 22:30 Pulse Oximetry 98 12/27/23 22:30 Oxygen Delivery Me thod Room Air 12/27/23 20:00 MDM - Male Lab Data Radiology Impressions Arterial/Peripheral Duplex 12/27/23 19:53 IMPRESSION: No stenosis or occlusion. No pseudoaneurysm identified. Discharge Plan Discharge Patient Disposition: Home Clinical Impression: Contusion of groin, right Qualifiers: Encounter type: initial encounter Qualified Code(s): S30.1XXA - Contusion of abdominal wall, initial encounter Condition: Stable Prescriptions: No Action nitroglycerin 0.4 mg tablet, sublingual 0.4 mg sublingual Q5M PRN Rx Instructions: do not exceed 3 doses per episode hydroxyzine HCl 25 mg tablet 25 mg PO BID PRN (Reason: anxiety) Qty: 60 0RF sumatriptan succinate 25 mg tablet See Rx Instructions PO .COMPLEX Qty: 10 0RF Rx Instructions: take 1 tab at onset of headache; if no relief may repeat 1 tab after at least 2 hrs; max = 4 tabs/24 hr PO Repatha SureClick 140 mg/mL pen injector SUBCUT buspirone 10 mg tablet 10 mg PO BID Qty: 60 1RF metoprolol succinate [Toprol XL] 25 mg tablet extended release 24 hr 12.5 mg PO DAILY Qty: 90 1RF aspirin 325 mg tablet 325 mg PO DAILY Qty: 90 1RF atorvastatin 80 mg tablet 80 mg PO DAILY Qty: 90 1RF Discharge Orders: Discharge ED (Routine); Ordered 12/27/23 Ordered By: Geovanni Tamez Referrals: Jc Rico MD [Primary Care Provider] - Discharge Diet: Usual diet Discharge Activity: Increase activity as tolerated Patient Instructions: Hematoma (ED) Activity Restrictions/Additional Instructions: Continue with recommended treatment plan. Follow-up with primary care for further instructions. Return to ED for new concerns. Sign Out Sign Out Data: Patient Sign Out occurred on 12/27/23 at 21:39. Patient's care was discussed, and care was transferred from Nohemy Villegas MD to JOVANNY Jones. Coding Level of Care Code ED Chemical Laboratory Assistant for Chg Fwd Documented by User: JOVANNY Jones 12/27/23 23:26 HPI - Male Genitourinary General: Chief complaint: Urogenital-Male Stated complaint: Groin pain Time Seen by Provider: 12/27/23 19:48 [facility] ED PFSH: Medical History (Updated 12/27/23 @ 22:27 by JOVANNY Jones) Prediabetes Coronary artery disease LV dysfunction Hyperlipidemia LDL goal <70 Hypertension Surgical History S/P CABG x 3 History of hand surgery History of eye surgery lazy eye correction S/P CABG (coronary artery bypass graft) No pertinent past surgical history Family History Father CAD (coronary artery disease) Cancer Rare thyroid or esophagus Mother CAD (coronary artery disease) Cancer Breast Grandmother CAD (coronary artery disease) Other Hypertension Denies family history of Diabetes Clotting disorder Dementia Hyperlipidemia Psychiatric illness Chronic kidney disease (CKD) Anesthesia complication Bleeding disorder Lung disease Stroke Social History Smoking and tobacco/nicotine status: former use of tobacco/nicotine Alcohol intake: never Substance/Drug Use: never Lives independently: Yes Marital status: Single Number of children: 0 Current occupational status: employed Current occupation: [employer] Special giovanna needs: No Agree to transfusion: Yes Course Vital Signs: Vital signs: Vital Signs Temperature 98.2 F 12/27/23 18:55 Pulse Rate 66 12/27/23 22:30 Respiratory Rate 14 12/27/23 18:55 Blood Pressure 124/74 12/27/23 22:30 Pulse Oximetry 98 12/27/23 22:30 Oxygen Delivery Me thod Room Air 12/27/23 20:00 MDM - Male Medical Decision Making Received patient from Dr. Villegas. We were awaiting ultrasound of the catheterization insertion point to rule out bleeding at the site. Ultrasound noted no stenosis or occlusion or pseudoaneurysm. Reviewed exam with patient with recommendation for follow-up with surgeon for further evaluation and treatment as needed. Patient reported understanding. Lab Data Radiology Impressions Arterial/Peripheral Duplex 12/27/23 19:53 IMPRESSION: No stenosis or occlusion. No pseudoaneurysm identified. All radiology interpretation(s) finalized by discharge Discharge Plan Discharge Patient Disposition: Home Clinical Impression: Contusion of groin, right Qualifiers: Encounter type: initial encounter Qualified Code(s): S30.1XXA - Contusion of abdominal wall, initial encounter Condition: Stable Prescriptions: No Action nitroglycerin 0.4 mg tablet, sublingual 0.4 mg sublingual Q5M PRN Rx Instructions: do not exceed 3 doses per episode hydroxyzine HCl 25 mg tablet 25 mg PO BID PRN (Reason: anxiety) Qty: 60 0RF sumatriptan succinate 25 mg tablet See Rx Instructions PO .COMPLEX Qty: 10 0RF Rx Instructions: take 1 tab at onset of headache; if no relief may repeat 1 tab after at least 2 hrs; max = 4 tabs/24 hr PO Repatha SureClick 140 mg/mL pen injector SUBCUT buspirone 10 mg tablet 10 mg PO BID Qty: 60 1RF metoprolol succinate [Toprol XL] 25 mg tablet extended release 24 hr 12.5 mg PO DAILY Qty: 90 1RF aspirin 325 mg tablet 325 mg PO DAILY Qty: 90 1RF atorvastatin 80 mg tablet 80 mg PO DAILY Qty: 90 1RF Discharge Orders: Discharge ED (Routine); Ordered 12/27/23 Ordered By: Geovanni Tamez Referrals: Jc Rico MD [Primary Care Provider] - Discharge Diet: Usual diet Discharge Activity: Increase activity as tolerated Patient Instructions: Hematoma (ED) Activity Restrictions/Additional Instructions: Continue with recommended treatment plan. Follow-up with primary care for further instructions. Return to ED for new concerns. Sign Out Sign Out Data: Patient Sign Out occurred on 12/27/23 at 21:39. Patient's care was discussed, and care was transferred from Nohemy Villegas MD to JOVANNY Jones. Coding Level of Care Code ED Chemical Laboratory Assistant for Siimn Bangura
== END 2023-12-27 22:33 | disposition home or self-care (01) ==
PROVIDERS: Emergency Provider Nurse Practitioner Family; PCP Family Medicine
DX: S30.1XXA Contusion of abdominal wall, initial encounter (principal); Z79.82 Long term (current) use of aspirin; I25.10 Atherosclerotic heart disease of native coronary artery without angina pectoris; E78.5 Hyperlipidemia, unspecified; I10 Essential (primary) hypertension; Z95.1 Presence of aortocoronary bypass graft; Z87.891 Personal history of nicotine dependence; W54.1XXA Struck by dog, initial encounter
CPT/HCPCS: 93926; 99284

== ENCOUNTER 2024-06-07 14:08 | Outpatient (CLI) | payer BC, SELFPAY | END 2024-06-07 14:09 | disposition home or self-care (01) | LOC: SLEEP 14:11 | PROVIDERS: PCP Family Medicine; Visit Provider Family Medicine | DX: G47.30 Sleep apnea, unspecified (principal); G47.00 Insomnia, unspecified | CPT/HCPCS: G0399 ==

== ENCOUNTER → 2025-02-02 18:43 | Outpatient (BNVA) | payer OTHER, SELFPAY | PROVIDERS: PCP Family Medicine | DX: J02.9 Acute pharyngitis, unspecified (principal) | CPT/HCPCS: 87071; 87880 ==

== ENCOUNTER → 2025-02-28 07:13 | Outpatient (BNVA) | payer OTHER, SELFPAY | PROVIDERS: PCP Family Medicine; Visit Provider Family Medicine | DX: I25.10 Atherosclerotic heart disease of native coronary artery without angina pectoris (principal) | CPT/HCPCS: 80053; 80061; 84403; 84439; 84443; 85025 ==